=== PATIENT | female | born 1945 | race Caucasian/White ===

== ENCOUNTER 2018-06-06 12:48 | Inpatient (IN) | payer OTHER, BC ==
[2018-06-06] MEDS ORDERED: ASPIRIN 81 MG CHEWABLE TABLETS PO ONE (13:25)
[2018-06-06] MEDS ORDERED: ASPIRIN 81 MG CHEWABLE TABLETS ONE (13:49)
--- NOTE | 2018-06-06 13:52 | PDOC ---
History of Present Illness - General History Source: Patient Exam Limitations: No Limitations <Maris Lugo - Last Filed: 06/06/18 15:01> <Taylor Montgomery - Last Filed: 06/06/18 19:59> - General Chief Complaint: Irregular Heart Beat Stated Complaint: CHEST PAIN Time Seen by Provider: 06/06/18 13:25 - History of Present Illness Initial Comments: 06/06/18 14:56 The patient is a 72 year old female, with a past medical history of Mitral valve prolapse and regurgitation, ulceritive colitis, pAfib, not on AC who was sent into the emergency room today by Dr. Brannon for Afib RVR. The patient denies any chest pain, palpitations, lightheadedness, or dizziness at this time. She does note that she had a syncopal episode in [place] approximately 1 month ago where she felt very weak while praying and fainted. She visited her PCP, Dr. Thaddeus Pendleton, the following day who referred her to Dr. Brannon for eval and echo. The patient states that she has been under a lot of stress lately. She notes that she does not drink caffeine very often, but may have a cup of tea/day. Denies any complaints of pain at this time. Note: Pt was unaware of any cardiac history or history of Afib. Old records from an ED visit in 2016 notes that she was previously worked up for Afib RVR. Denies fever, chills, nausea, vomiting, diarrhea. Denies chest pain, palpitations, lightheadedness, or dizziness. Denies abdominal pain. Denies recent leg swelling. Allergies: NKA PCP: Dr. Thaddeus Pendleton Crane Engineer: Dr. Brannon 06/06/18 15:01 ([facility] [place]) Past History <Maris Lugo - Last Filed: 06/06/18 15:01> - Past Medical History Anemia: No Asthma: No Cancer: No Cardiac Disorders: Yes (PAROXYSMAL ATRIAL FIBRILLATION) CVA: No COPD: No CHF: No Dementia: No Diabetes: No GI Disorders: Yes (ULCERATIVE COLITIS) Disorders: No HTN: No Hypercholesterolemia: No Liver Disease: No Seizures: No Thyroid Disease: No - Surgical History Abdominal Surgery: No Appendectomy: No Cardiac Surgery: No Cholecystectomy: No Lung Surgery: No Neurologic Surgery: No Orthopedic Surgery: No - Suicide/Smoking/Psychosocial Hx Smoking History: Never smoked Have you smoked in the past 12 months: No Hx Alcohol Use: No Drug/Substance Use Hx: No Substance Use Type: None Hx Substance Use Treatment: No <Taylor Montgomery - Last Filed: 06/06/18 19:59> - Past Medical History Allergies/Adverse Reactions: Allergies Allergy/AdvReac Type Severity Reaction Status Date / Time No Known Allergies Allergy Verified 07/08/16 13:47 Home Medications: Ambulatory Orders NK [No Known Home Medication] 07/08/16 Cardiac Specific PMH - Complaint Specific PMHX Pacemaker: No <Taylor Montgomery - Last Filed: 06/06/18 19:59> Review of Systems - Review of Systems Able to Perform ROS?: Yes <Maris Lugo - Last Filed: 06/06/18 15:01> <Taylor Montgomery - Last Filed: 06/06/18 19:59> - Review of Systems Comments:: 06/06/18 14:56 GENERAL/CONSTITUTIONAL: No fever or chills. No weakness. no sweats. HEAD, EYES, EARS, NOSE AND THROAT: No change in vision or hearing. No ear pain or discharge. No sore throat or mouth pain. No difficulty swallowing.. No congestion. CARDIOVASCULAR: No chest pain or palpitations, syncope or edema. RESPIRATORY: No SOB, cough, wheezing, or hemoptysis. GASTROINTESTINAL No nausea/vomiting. No diarrhea or constipation. No bloody stools. GENITOURINARY: No hematuria, dysuria, frequency, urgency or other changes. MUSCULOSKELETAL: No joint or muscle swelling or pain. No neck or back pain. SKIN: No rash or changes in skin color or lesions. NEUROLOGIC: No headache, vertigo, loss of consciousness, or change in strength/ sensation. HEMATOLOGIC/LYMPHATIC: No anemia, easy bruising/bleeding, or history of blood clots. ALLERGIC/IMMUNOLOGIC: No allergies All other systems reviewed and negative, or as documented in HPI. (Maris Lugo) *Physical Exam <Maris Lugo - Last Filed: 06/06/18 15:01> <Taylor Montgomery - Last Filed: 06/06/18 19:59> - Vital Signs Last Vital Signs Temp Pulse Resp BP Pulse Ox 98.1 F 65 18 135/60 100 06/06/18 12:54 06/06/18 17:50 06/06/18 17:50 06/06/18 17:50 06/06/18 17:50 - Physical Exam Comments: 06/06/18 14:56 General: Well appearing, awake and alert, NAD. HEENT: NCAT, PERRL, EOMI, clear conjunctiva, anicteric, moist mucus membranes, clear oropharynx, no oral lesions.. Neck: neck supple, FROM. No JVD. Resp: CTAB, normal and even respirations, no respiratory distress CVS: +irregularly irregular, no carotid bruits. no murmurs, 2+ peripheral pulses throughout, no peripheral edema Abdomen: soft, NTND, no peritoneal signs. Back: nontender, normal inspection and ROM MSK: no edema, YIP x4, ROM intact. No clubbing or cyanosis. normal bulk and tone. Neuro: alert, oriented appropriately; no focal neurologic deficits Skin: warm and well perfused, cap refill <2 sec, normal color (Maris Lugo) Heart Score/ECG Review <Maris Lugo - Last Filed: 06/06/18 15:01> <Taylor Montgomery - Last Filed: 06/06/18 19:59> - ECG Impressions Comment:: 06/06/18 13:49 EKG Afib with RVR and diffuse rate related ST depressions, 162 bpm, no interval abnormalities, narrow QRS, Nonspecific T wave abnormalities with RVR. (Taylor Montgomery) ED Treatment Course - LABORATORY CBC & Chemistry Diagram: 06/06/18 13:46 06/06/18 13:46 <Maris Lugo - Last Filed: 06/06/18 15:01> - LABORATORY CBC & Chemistry Diagram: 06/06/18 13:46 06/06/18 13:46 <Taylor Montgomery - Last Filed: 06/06/18 19:59> - ADDITIONAL ORDERS Additional order review: Laboratory Results 06/06/18 06/06/18 06/06/18 14:14 13:46 13:46 PT with INR INR Sodium 142 Potassium 3.9 Chloride 106 Carbon Dioxide 29 Anion Gap 7 L BUN 22 H Creatinine 0.9 Creat Clearance w eGFR > 60 Random Glucose 75 Calcium 9.0 Magnesium 2.2 Total Bilirubin 0.8 AST 20 ALT 23 Alkaline Phosphatase 75 Troponin I < 0.02 B-Natriuretic Peptide 474.71 H Total Protein 7.8 Albumin 3.6 TSH 1.28 06/06/18 13:46 PT with INR 10.90 INR 0.96 Sodium Potassium Chloride Carbon Dioxide Anion Gap BUN Creatinine Creat Clearance w eGFR Random Glucose Calcium Magnesium Total Bilirubin AST ALT Alkaline Phosphatase Troponin I B-Natriuretic Peptide Total Protein Albumin TSH 06/06/18 13:46 RBC 4.38 MCV 95.0 MCHC 33.6 RDW 13.8 MPV 10.2 Neutrophils % 55.6 Lymphocytes % 34.5 Monocytes % 6.5 Eosinophils % 2.5 Basophils % 0.9 - RADIOLOGY Radiology Studies Ordered: Category Date Time Status CHEST PA & LAT [RAD] Stat Radiology 06/06/18 13:25 Completed Radiograph Interpretation: 06/06/18 14:57 Xray of the chest Impression: emphysematous changes in the lungs, no infiltrate or effusion, no evidence of pneumonia or congestive change, no pneumothorax. (Maris Lugo) - Medications Given in the ED: ED Medications Discontinued Medications Generic Name Dose Route Start Last Admin Trade Name Freq PRN Reason Stop Dose Admin Aspirin 162 mg 06/06/18 13:25 06/06/18 13:54 Asa - PO 06/06/18 13:26 162 mg ONCE ONE Administration Sodium Chloride 1,000 ml 06/06/18 15:01 06/06/18 15:02 Normal Saline - IV 06/06/18 15:02 1,000 ml ONCE ONE Administration Medical Decision Making <Maris Lugo - Last Filed: 06/06/18 15:01> <Taylor Montgomery - Last Filed: 06/06/18 19:59> - Medical Decision Making 06/06/18 15:00 Fraih 72 YOF with Ulcerative colitis and pAfib not on AC, MVP and mitral regurgitation presenting with Afib RVR. DDx. ACS, angina, new onset arrhythmia, Afib, electrolyte/metabolic derangements. EKG Afib with RVR and diffuse rate related ST depressions, 162 bpm, no interval abnormalities, narrow QRS, Nonspecific T wave abnormalities with RVR. ED course: given aspirin. IVF. Initial EKG and report with Afib RVR, on telemetry with episodes of pAfib. Repeat EKG with sinus rhythm. No symptoms. Labs and lytes, trop_negative, BNP indeterminate range, nonspecific. CXR with emphysematous changes, no infiltrate or edema. no need for rate control now. Dispo: admit for management of new onset Afib, not on AC, will likely need vs intervention. intermittent episodes of Afib without RVR that had since resolved. Cards cs with Dr. Brannon, admit to Dr Oviedo. 06/06/18 19:59 06/06/18 19:59 (Taylor Montgomery) *DC/Admit/Observation/Transfer <Maris Lugo - Last Filed: 06/06/18 15:01> - Discharge Dispostion Decision to Admit order: Yes <Taylor Montgomery - Last Filed: 06/06/18 19:59> Diagnosis at time of Disposition: Atrial fibrillation - Discharge Dispostion Condition at time of disposition: Guarded Decision to Admit order Date/Time: Decision to Admit Order Category Date Time Status Decision to Admit to Hospital Routine Admission 06/06/18 15:00 Active Decision to Admit to Hospital Routine Admission 06/06/18 16:02 Active - Referrals Referrals: Shiraz Pendleton MD [Primary Care Provider] - - Patient Instructions - Post Discharge Activity - Attestations Scribe Attestion: 06/06/18 14:56 Documentation prepared by LILIANA Rizo, acting as chief medical technologist for Taylor Montgomery MD. (Maris Lugo) Physician Attestion: 06/06/18 14:59 I, Taylor Montgomery MD, attest that this document has been prepared under my direction and personally reviewed by me in its entirety. I further attest, that it accurately reflects all work, treatment, procedures and medical decision -making performed by me. (Taylor Montgomery)
[2018-06-06 14:32] LABS: BASO % 0.9 % (0-2.0); EOS % 2.5 % (0-4.5); HEMATOCRIT 41.6 % (32.4-45.2); LYMPH % 34.5 % (8-40); MCH 31.9 pg (25.7-33.7); MCHC 33.6 g/dl (32.0-36.0); MEAN PLT VOLUME 10.2 fl (7.5-11.1); MONO % 6.5 % (3.8-10.2); NEUT % 55.6 % (42.8-82.8); PLATELET COUNT 270 K/MM3 (134-434); RBC 4.38 M/mm3 (3.60-5.2); RDW 13.8 % (11.6-15.6); WHITE BLOOD COUNT 8.9 K/mm3 (4.0-10.0)
[2018-06-06 14:43] LABS: INR 0.96 (0.83-1.09); PROTHROMBIN TIME (PATIENT) 10.9 SEC (9.7-13.0)
[2018-06-06] MEDS ORDERED: SODIUM CHLORIDE 0.9% 500 ML INFUS.BAG IV ONE (15:01)
--- NOTE | 2018-06-06 15:25 | EKG ---
Test Reason : Blood Pressure : / mmHG Vent. Rate : 066 BPM Atrial Rate : 066 BPM P-R Int : 128 ms QRS Dur : 082 ms QT Int : 396 ms P-R-T Axes : 046 064 036 degrees QTc Int : 415 ms NORMAL SINUS RHYTHM POSSIBLE LEFT ATRIAL ENLARGEMENT BORDERLINE ECG WHEN COMPARED WITH ECG OF 06-JUN-2018 12:58, SINUS RHYTHM HAS REPLACED ATRIAL FLUTTER VENT. RATE HAS DECREASED BY [address] NO LONGER DEPRESSED IN INFERIOR LEADS ST NO LONGER DEPRESSED IN ANTEROLATERAL LEADS T WAVE INVERSION NO LONGER EVIDENT IN INFERIOR LEADS NONSPECIFIC T WAVE ABNORMALITY NO LONGER EVIDENT IN LATERAL LEADS Confirmed by CORAL QUESADA, ELVA ([id number]) on 06/06/2018 3:25:22 PM Referred By: Confirmed By:ELVA MONCADA MD
[2018-06-06 16:23] LABS: ALBUMIN 3.6 g/dl (3.4-5.0); ANION GAP 7 MMOL/L (8-16); BLOOD UREA NITROGEN 22 mg/dL (7-18); CHLORIDE 106 mmol/L (98-107); CO2 29 mmol/L (21-32); GLUCOSE,RANDOM 75 mg/dL (74-106); MAGNESIUM 2.2 mg/dL (1.8-2.4); POTASSIUM 3.9 mmol/L (3.5-5.1); SODIUM 142 mmol/L (136-145)
[2018-06-06 16:26] LABS: ALK PHOS 75 U/L (45-117); BILIRUBIN,TOTAL 0.8 mg/dL (0.2-1); CREATININE 0.9 mg/dL (0.55-1.3); SGOT/AST 20 U/L (15-37); SGPT/ALT 23 U/L (13-61); TOT PROT 7.8 g/dl (6.4-8.2)
[2018-06-06 16:31] LABS: N-TERMINAL BNP 474.71 pg/ml (5-125)
--- NOTE | 2018-06-06 17:05 | HP ---
Admitting History and Physical - Primary Care Physician PCP: Shiraz Pendleton - Admission Chief Complaint: afib w/ rvr History of Present Illness: is a 72 year old female who was sent over from [employer]'s office for afib w/ rvr. Pt reports she was at the office getting an echo done, pt noted to have HR in 150s, ekg revealed afib w/ rvr at the office and was told to come to ED. She reports having a syncope episode in [place] 1 month ago, she reports feeling "weak in stomach" and feels she fainted due to heat, pt did not go to the hospital at that time, was told by EMS her HR was irregular, she saw her PCP in office next day, ekg did not reveal significant changes and an echo was ordered by PCP. She reports she has been more stressed over the last 6 months. She reports intermittent generalized weakness which self resolves, occurring once a month for the last few years. Per cardiology records, pt had isolated episode of afib in 2008, currently not on AC/BB.Otherwise, pt reports feeling well without any symptoms of sob, lightheadedness, dizziness, n/v/d, or weakness. Denies excessive caffeine intake. Pt converted back to SR in ED. History Source: Patient, Medical Record Limitations to Obtaining History: No Limitations - Past Medical History Gastrointestinal: Yes: Ulcerative Colitis - Smoking History Smoking history: Never smoked Have you smoked in the past 12 months: No - Alcohol/Substance Use Hx Alcohol Use: No History of Substance Use: reports: None - Social History History of Recent Travel: No Home Medications - Allergies Allergies/Adverse Reactions: Allergies Allergy/AdvReac Type Severity Reaction Status Date / Time No Known Allergies Allergy Verified 07/08/16 13:47 - Home Medications Home Medications: Ambulatory Orders NK [No Known Home Medication] 07/08/16 Family Disease History - Family Disease History Family Disease History: Heart Disease: Brother, Other: Grandparent (UC ), Father (ulcerative colitis ) Review of Systems Findings/Remarks: PER HPI Physical Examination Vital Signs: Vital Signs Temperature 98.1 F 06/06/18 12:54 Pulse Rate 78 06/06/18 12:54 Respiratory Rate 18 06/06/18 12:54 Blood Pressure 137/74 06/06/18 12:54 O2 Sat by Pulse Oximetry (%) 97 06/06/18 12:54 Constitutional: Yes: Well Nourished, No Distress, Calm Cardiovascular: Yes: WNL, Regular Rate and Rhythm. No: Murmur, Rub Respiratory: Yes: WNL, Regular, CTA Bilaterally. No: Accessory Muscle Use, SOB , SOB on Exertion, Tachypnea, Wheezes Gastrointestinal: Yes: WNL, Normal Bowel Sounds, Soft. No: Distention, Tenderness Renal/: Yes: WNL Musculoskeletal: Yes: WNL Extremities: Yes: WNL Edema: No Integumentary: Yes: WNL Neurological: Yes: WNL, Alert, Oriented. No: Confusion, Facial Droop, Tingling , Unsteady Gait Psychiatric: Yes: WNL, Alert, Oriented Labs: CBC, BMP 06/06/18 13:46 06/06/18 13:46 Imaging - Results Chest X-ray: Report Reviewed EKG: Report Reviewed Problem List - Problems (1) Atrial fibrillation with RVR Assessment/Plan: afib w/ rvr 150s in office, asymptomatic converted back to SR in ED without arrhythmic tsh wnl chadvasc score 2- candidate for AC AC/BB recommended to pt by Cardiology however pt prefers to speak to PCP before starting new medication, PCP aware tele monitoring cardiology following Code(s): I48.91 - UNSPECIFIED ATRIAL FIBRILLATION (2) Syncope Assessment/Plan: Recent syncopal episode over a month ago suspect 2/2 dehydration/heat exhaustion echo done today without etiology cardiology following monitor Code(s): R55 - SYNCOPE AND COLLAPSE Qualifiers: Syncope type: heat syncope Encounter type: subsequent encounter Qualified Code(s): T67.1XXD - Heat syncope, subsequent encounter Assessment/Plan Dispo: possible d/c tomorrow once cleared by cardiology
--- NOTE | 2018-06-06 17:32 | CON.CARD ---
Cardiology Consult (text) - Consultation Consultation Note: cc: afib hpi: 72 f hx UC, pafib here with afib with rvr. In 2008 pt had isolated episode of afib. Has not been on AC and BB was stopped years ago. Today she was going for outpt echo after recent vasovagal episode. During echo found to be in afib with rvr. ECG done and confirmed afib 160s. She had no sxs. No cp, sob, palps dizzy loc pnd orthopnea le edema. Sent to ER. In ER converted on own to SR. pmh: per hpi psh: cataracts social: no tob fam: nc ros: per hpi; no nvd vision changes, muscle pain, gib hematuria dysuria cough meds: Home Medications Medication Instructions Recorded NK [No Known Home Medication] 07/08/16 pe: Vital Signs Period Temp Pulse Resp BP Sys/Cole Pulse Ox Last 24 Hr 98.1 F 78 18 137/74 97 nad no jvd rrr s1s2 no mrg cta bl nl eff aaox3 no le e/c/c abd nt nd pos bs no jaundice diaphoresis pos dp pt no carotid bruits Laboratory Last Values WBC 8.9 K/mm3 (4.0-10.0) 06/06/18 13:46 RBC 4.38 M/mm3 (3.60-5.2) 06/06/18 13:46 Hgb 14.0 GM/dL (10.7-15.3) 06/06/18 13:46 Hct 41.6 % (32.4-45.2) 06/06/18 13:46 MCV 95.0 fl (80-96) 06/06/18 13:46 MCH 31.9 pg (25.7-33.7) 06/06/18 13:46 MCHC 33.6 g/dl (32.0-36.0) 06/06/18 13:46 RDW 13.8 % (11.6-15.6) 06/06/18 13:46 Plt Count 270 K/MM3 (134-434) 06/06/18 13:46 MPV 10.2 fl (7.5-11.1) 06/06/18 13:46 Absolute Neuts (auto) 4.9 K/mm3 (1.5-8.0) 06/06/18 13:46 Neutrophils % 55.6 % (42.8-82.8) 06/06/18 13:46 Lymphocytes % 34.5 % (8-40) 06/06/18 13:46 Monocytes % 6.5 % (3.8-10.2) 06/06/18 13:46 Eosinophils % 2.5 % (0-4.5) 06/06/18 13:46 Basophils % 0.9 % (0-2.0) 06/06/18 13:46 Nucleated RBC % 0 % (0-0) 06/06/18 13:46 PT with INR 10.90 SEC (9.7-13.0) 06/06/18 13:46 INR 0.96 (0.83-1.09) 06/06/18 13:46 Sodium 142 mmol/L (136-145) 06/06/18 13:46 Potassium 3.9 mmol/L (3.5-5.1) 06/06/18 13:46 Chloride 106 mmol/L (98-107) 06/06/18 13:46 Carbon Dioxide 29 mmol/L (21-32) 06/06/18 13:46 Anion Gap 7 MMOL/L (8-16) L 06/06/18 13:46 BUN 22 mg/dL (7-18) H 06/06/18 13:46 Creatinine 0.9 mg/dL (0.55-1.3) 06/06/18 13:46 Creat Clearance w eGFR > 60 (>60) 06/06/18 13:46 Random Glucose 75 mg/dL (74-106) 06/06/18 13:46 Calcium 9.0 mg/dL (8.5-10.1) 06/06/18 13:46 Magnesium 2.2 mg/dL (1.8-2.4) 06/06/18 13:46 Total Bilirubin 0.8 mg/dL (0.2-1) 06/06/18 13:46 AST 20 U/L (15-37) 06/06/18 13:46 ALT 23 U/L (13-61) 06/06/18 13:46 Alkaline Phosphatase 75 U/L (45-117) 06/06/18 13:46 Troponin I < 0.02 ng/ml (0.00-0.05) 06/06/18 13:46 B-Natriuretic Peptide 474.71 pg/ml (5-125) H 06/06/18 13:46 Total Protein 7.8 g/dl (6.4-8.2) 06/06/18 13:46 Albumin 3.6 g/dl (3.4-5.0) 06/06/18 13:46 TSH 1.28 uIU/ml (0.358-3.74) 06/06/18 14:14 office echo 05/2018, my prelim read: afib 150s, nl lv/rv, mod tr, nl rvsp, mild mr, IASA ecg 1: afib with rvr, ecg 2: sr, nl intervals, no ischemic changes cxr: clear lungs a/p: 72 f hx UC, pafib here with afib with rvr. pafib: -In 2008 pt had isolated episode of afib. Has not been on AC and BB was stopped years ago. -today found in afib with rvr during outpt echo, asymptomatic -in ER converted on own to SR -rec'd low dose bb, toprol 25 bid and eliquis 5 bid (chadsvasc is 2) but pt says she will not start until talking to her PMD first -echo today in office unremarkable, tsh wnl -monitor on tele, likely dc tomorrow presyncope: -vasovagal episode recently in [facility] -echo today w/o etiology -?afib with rvr at that time, although she had no sxs with rvr today so seems less likely -plan as above possible juliann - describes pt having episodes of apnea during sleep. rec'd outpt sleep study.
[2018-06-07 01:26] VITALS: BMI 22.6
[2018-06-07 07:20] LABS: BASO % 0.7 % (0-2.0); EOS % 3.3 % (0-4.5); HEMATOCRIT 39.1 % (32.4-45.2); HEMOGLOBIN 13.1 GM/dL (10.7-15.3); LYMPH % 33.3 % (8-40); MCH 31.9 pg (25.7-33.7); MCHC 33.4 g/dl (32.0-36.0); MEAN CELL VOLUME 95.5 fl (80-96); MEAN PLT VOLUME 9.5 fl (7.5-11.1); MONO % 5.8 % (3.8-10.2); NEUT % 56.9 % (42.8-82.8); PLATELET COUNT 229 K/MM3 (134-434); RBC 4.09 M/mm3 (3.60-5.2); RDW 13.6 % (11.6-15.6); WHITE BLOOD COUNT 8.6 K/mm3 (4.0-10.0)
[2018-06-07 07:37] LABS: INR 0.99 (0.83-1.09); PROTHROMBIN TIME (PATIENT) 11.2 SEC (9.7-13.0)
[2018-06-07 07:46] LABS: CHLORIDE 109 mmol/L (98-107); POTASSIUM 3.9 mmol/L (3.5-5.1); SODIUM 141 mmol/L (136-145)
[2018-06-07 07:58] LABS: ANION GAP 6 MMOL/L (8-16); BLOOD UREA NITROGEN 22 mg/dL (7-18); CALCIUM 8.3 mg/dL (8.5-10.1); CO2 26 mmol/L (21-32); CREATININE 0.8 mg/dL (0.55-1.3); GLUCOSE,RANDOM 82 mg/dL (74-106); MAGNESIUM 2.2 mg/dL (1.8-2.4)
--- NOTE | 2018-06-07 11:14 | PN ---
Progress Note (short form) - Note Progress Note: s: no cp, sob, palps, dizzy o: Vital Signs Period Temp Pulse Resp BP Sys/Cole Pulse Ox Last 24 Hr 97.4 F-98.2 F 60-78 17-18 119-137/60-84 97-100 nad no jvd rrr s1s2 no mrg cta bl nl eff aaox3 no le e/c/c abd nt nd pos bs no jaundice diaphoresis CBC, BMP 06/07/18 06:10 06/07/18 06:10 office echo 05/2018, my prelim read: afib 150s, nl lv/rv, mod tr, nl rvsp, mild mr, IASA ecg 1: afib with rvr, ecg 2: sr, nl intervals, no ischemic changes cxr: clear lungs tele: sr a/p: 72 f hx UC, pafib here with afib with rvr. pafib: -In 2008 pt had isolated episode of afib. Has not been on AC and BB was stopped years ago. -yesterday found in afib with rvr during outpt echo, asymptomatic -in ER converted on own to SR, remains in sr overnight -rec'd low dose bb, toprol 25 bid and eliquis 5 bid (chadsvasc is 2), pt now agreeable -echo today in office unremarkable, tsh wnl presyncope: -vasovagal episode recently in [facility] -echo today w/o etiology -?afib with rvr at that time, although she had no sxs with rvr today so seems less likely -plan as above possible juliann - describes pt having episodes of apnea during sleep. rec'd outpt sleep study. cardiac castillo stable for dc, f/u 1 mos
[2018-06-07] MEDS ORDERED: APIXABAN 5 MG TABLET PO SCH (11:30)
[2018-06-07] MEDS ORDERED: metoPROLOL SUCCINATE 25 MG TAB.SR.24H (FP) PO SCH (11:30)
[2018-06-07 12:00] VITALS: BP 130/77; PULSE 64; TEMP 98
--- NOTE | 2018-06-07 13:22 | DS ---
Physical Examination Vital Signs: Vital Signs Temperature 98.0 F 06/07/18 10:00 Pulse Rate 64 06/07/18 10:00 Respiratory Rate 18 06/07/18 10:00 Blood Pressure 130/77 06/07/18 10:00 O2 Sat by Pulse Oximetry (%) 98 06/07/18 10:00 Constitutional: Yes: Well Nourished, No Distress, Calm Cardiovascular: Yes: Regular Rate and Rhythm. No: Murmur Respiratory: Yes: Regular, CTA Bilaterally Gastrointestinal: Yes: WNL, Normal Bowel Sounds, Soft. No: Distention, Tenderness Renal/: Yes: WNL Musculoskeletal: Yes: WNL Edema: No Labs: CBC, BMP 06/07/18 06:10 06/07/18 06:10 Discharge Summary Reason For Visit: ATRIAL FIBRILATION Hospital Course: 72 year old female admitted for afib w/ rvr, self resolved without medication. Pt evaluated by cardiology. chadvasc score 2. started on metoprolol, eliquis for paroxysmal afib. pt without any symptoms. hx of syncope 1 month ago, head CT negative. Otherwise, no acute events. Pt asymptomatic, currently in SR. outpt follow up recommended. Condition: Good - Instructions Referrals: Marco Antonio Brannon MD [Staff Physician] - 1 Week Shiraz Pendleton MD [Primary Care Provider] - 1 Week Disposition: HOME - Home Medications Comprehensive Discharge Medication List: Ambulatory Orders Apixaban [Eliquis -] 5 mg PO BID #60 tablet 06/07/18 Metoprolol Succinate [Toprol XL -] 25 mg PO BID #60 tab.sr.24h 06/07/18
--- NOTE | 2018-06-09 15:40 | EKG ---
Test Reason : Blood Pressure : / mmHG Vent. Rate : 162 BPM Atrial Rate : 326 BPM P-R Int : 000 ms QRS Dur : 078 ms QT Int : 294 ms P-R-T Axes : 000 064 -82 degrees QTc Int : 482 ms ATRIAL FLUTTER WITH VARIABLE A-V BLOCK MARKED ST ABNORMALITY, POSSIBLE INFERIOR SUBENDOCARDIAL INJURY ABNORMAL ECG WHEN COMPARED WITH ECG OF 06-DEC-2008 10:08, ATRIAL FLUTTER HAS REPLACED SINUS RHYTHM VENT. RATE HAS INCREASED BY [address] NOW DEPRESSED IN INFERIOR LEADS ST NOW DEPRESSED IN ANTEROLATERAL LEADS T WAVE INVERSION NOW EVIDENT IN INFERIOR LEADS NONSPECIFIC T WAVE ABNORMALITY NOW EVIDENT IN LATERAL LEADS Confirmed by MD Frankie, Scott ([id number]) on 06/09/2018 3:39:44 PM Referred By: Confirmed By:Scott David MD
== END 2018-06-07 13:18 | disposition home or self-care (01) | DRG 310 ==
LOC: JER 12:48 → JERBED 16:56 → OBSVTOIN 16:56 → UNDOADMOB 21:16 → JERBED 21:16 → J4W 06-07 01:17
PROVIDERS: ADMIT Internal Medicine; ATTEND Internal Medicine
DX: I48.0 Paroxysmal atrial fibrillation (principal); I34.1 Nonrheumatic mitral (valve) prolapse; I34.0 Nonrheumatic mitral (valve) insufficiency; R55 Syncope and collapse
CPT/HCPCS: 36415; 70450-TC; 71046-TC-FY; 80048; 80053; 83735; 83880; 84443; 84484; 85025; 85610; 93005; 93010; 99284-25

== ENCOUNTER 2018-07-11 15:13 | Emergency (ER) | payer OTHER, BC ==
--- NOTE | 2018-07-11 15:21 | PDOC ---
Rapid Medical Evaluation Time Seen by Provider: 07/11/18 15:17 Medical Evaluation: Allergies Allergy/AdvReac Type Severity Reaction Status Date / Time No Known Allergies Allergy Verified 07/08/16 13:47 07/11/18 15:17 I have performed a brief in-person evaluation of this patient. The patient presents with a chief complaint of: atraumatic right calf pain Pertinent physical exam findings: swelling and tenderness to right calf. No erythema noted. I have ordered the following: doppler The patient will proceed to the ED for further evaluation. Discharge Disposition - Diagnosis Right calf pain - Referrals - Patient Instructions - Post Discharge Activity
[2018-07-11 15:24] VITALS: BP 162/73; PULSE 63; TEMP 98.6; BMI 21.7
--- NOTE | 2018-07-11 17:50 | PDOC ---
History of Present Illness - General Chief Complaint: Edema Stated Complaint: RT LEG PAIN Time Seen by Provider: 07/11/18 15:17 History Source: Patient Exam Limitations: No Limitations - History of Present Illness Initial Comments: 07/11/18 17:48 Patient is a 72-year-old female with past medical history of hypertension, atrial fibrillation on eliquis, who presents to the emergency department today for right lower extremity swelling and pain. Patient states that she feels the lower extremity pain while walking and sitting. She states that it does not hurt to touch the leg. She also notices that the right leg is double the size of left leg especially around the knees. Denies recent travel, prolonged sedentary lifestyle, smoking. Denies shortness of breath, difficulty breathing, fevers, recent illness, chest pain, palpitations, numbness and tingling to the extremities, weakness to the extremities. Past History - Travel Traveled outside of the country in the last 30 days: No Close contact w/someone who was outside of country & ill: No - Past Medical History Allergies/Adverse Reactions: Allergies Allergy/AdvReac Type Severity Reaction Status Date / Time No Known Allergies Allergy Verified 07/08/16 13:47 Home Medications: Ambulatory Orders Apixaban [Eliquis -] 5 mg PO BID #60 tablet 06/07/18 Metoprolol Succinate [Toprol XL -] 25 mg PO BID #60 tab.sr.24h 06/07/18 Anemia: No Asthma: No Cancer: No Cardiac Disorders: Yes (PAROXYSMAL ATRIAL FIBRILLATION) CVA: No COPD: No CHF: No Dementia: No Diabetes: No GI Disorders: Yes (ULCERATIVE COLITIS) Disorders: No HTN: No Hypercholesterolemia: No Liver Disease: No Seizures: No Thyroid Disease: No - Surgical History Abdominal Surgery: No Appendectomy: No Cardiac Surgery: No Cholecystectomy: No Lung Surgery: No Neurologic Surgery: No Orthopedic Surgery: No - Suicide/Smoking/Psychosocial Hx Smoking History: Never smoked Have you smoked in the past 12 months: No Information on smoking cessation initiated: No Hx Alcohol Use: No Drug/Substance Use Hx: No Substance Use Type: None Hx Substance Use Treatment: No Review of Systems - Review of Systems Able to Perform ROS?: Yes Comments:: 07/11/18 17:43 CONSTITUTIONAL: Absent: fever, chills, diaphoresis, generalized weakness, malaise, loss of appetite HEENT: Absent: rhinorrhea, nasal congestion, throat pain, throat swelling, difficulty swallowing, mouth swelling, ear pain, eye pain, visual Changes CARDIOVASCULAR: Present: peripheral edema/R calf pain Absent: chest pain, loss of consciousness , palpitations, irregular heart rate RESPIRATORY: Absent: cough, shortness of breath, dyspnea with exertion, orthopnea, wheezing, stridor, hemoptysis GASTROINTESTINAL: Absent: abdominal pain, abdominal distension, nausea, vomiting, diarrhea, constipation, melena, hematochezia GENITOURINARY: Absent: dysuria, frequency, urgency, hesitancy, hematuria, flank pain, genital pain MUSCULOSKELETAL: Absent: myalgia, arthralgia, joint swelling SKIN: Absent: rash, itching, pallor HEMATOLOGIC/IMMUNOLOGIC: Absent: easy bleeding, easy bruising, lymphadenopathy, frequent infections ENDOCRINE: Absent: unexplained weight gain, unexplained weight loss, heat intolerance, cold intolerance NEUROLOGIC: Absent: headache, focal weakness or paresthesias, dizziness, unsteady gait, seizure, mental status changes, bladder or bowel incontinence PSYCHIATRIC: Absent: anxiety, depression, suicidal or homicidal ideation, hallucinations. Is the patient limited [place]yan proficient: No *Physical Exam - Vital Signs Last Vital Signs Temp Pulse Resp BP Pulse Ox 98.6 F 63 16 162/73 98 07/11/18 15:21 07/11/18 15:21 07/11/18 15:21 07/11/18 15:21 07/11/18 15:21 - Physical Exam Comments: 07/11/18 17:44 GENERAL: Well developed, well nourished. Awake and alert. No acute distress. HEENT: Normocephalic, atraumatic. PERRLA, EOMI. No conjunctival pallor. Sclera are non- icteric. Moist mucous membranes. Oropharynx is clear. NECK: Supple. Full ROM. No JVD. Carotid pulses 2+ and symmetric, without bruits. No thyromegaly. No lymphadenopathy. CARDIOVASCULAR: Regular rate and rhythm. No murmurs, rubs, or gallops. Distal pulses are 2+ and symmetric. PULMONARY: No evidence of respiratory distress. Lungs clear to auscultation bilaterally. No wheezing, rales or rhonchi. ABDOMINAL: Soft. Non-tender. Non-distended. No rebound or guarding. No organomegaly. Normoactive bowel sounds. MUSCULOSKELETAL Normal range of motion at all joints. No bony deformities or tenderness. No CVA tenderness. EXTREMITIES: R calf and knee doubled in size compared to L calf. Pain with flexion of the R knee. Pt able to perform a straight leg raise of the R leg. No ttp of the L calf. (-) sofy's sign. No cyanosis. No clubbing. SKIN: Warm and dry. Normal capillary refill. No rashes. No jaundice. NEUROLOGICAL: Alert, awake, appropriate. Cranial nerves 2-12 intact. No deficits to light touch and temperature in face, upper extremities and lower extremities. No motor deficits in the in face, upper extremities and lower extremities. Normoreflexic in the upper and lower extremities. Normal speech. Toes are down- going bilaterally. Gait is normal without ataxia. PSYCHIATRIC: Cooperative. Good eye contact. Appropriate mood and affect. ED Treatment Course - LABORATORY CBC & Chemistry Diagram: 07/11/18 18:45 07/11/18 18:45 Medical Decision Making - Medical Decision Making 07/11/18 17:50 Patient is a 72-year-old female with past medical history of hypertension, atrial fibrillation on eliquis, who presents to the emergency department today for right lower extremity swelling and pain. -R leg grossly swollen around the area of the R knee. (-) Sofy's sign. Lungs CTAB -Pt currently on anticoagulation for atrial fibrillation -Labs added onto US order from [facility] -Pt refusing pain medication at this time -Re-evaluate 07/11/18 19:00 -Pt pending labs and US -Sign out given to Vy Poole [employer] EXAMINER for completion of work up. *DC/Admit/Observation/Transfer Diagnosis at time of Disposition: Right calf pain Right knee pain Qualifiers: Chronicity: acute Qualified Code(s): M25.561 - Pain in right knee Joint effusion of knee Qualifiers: Laterality: right Qualified Code(s): M25.461 - Effusion, right knee - Discharge Dispostion Disposition: HOME - Referrals Referrals: Micheal Almaraz MD [Staff Physician] - Shiraz Pendleton MD [Primary Care Provider] - - Patient Instructions Printed Discharge Instructions: DI for Knee Effusion Additional Instructions: use knee immobilizer as tolerated for comfort. follow up with an orthopedic doctor as soon as possible. take tylenol every 4-6 hours as needed for pain Additional Instructions: * Please call your personal physician to report your Emergency Department visit and to report your progress, if any. * If there is no improvement in symptoms in 2 days call your physician. * Return to the Emergency Department for any worsening symptoms. - Post Discharge Activity
[2018-07-11 18:55] LABS: BASO % 0.6 % (0-2.0); EOS % 2.5 % (0-4.5); HEMATOCRIT 40.5 % (32.4-45.2); HEMOGLOBIN 13.4 GM/dL (10.7-15.3); LYMPH % 35.5 % (8-40); MCH 31.4 pg (25.7-33.7); MEAN CELL VOLUME 95.1 fl (80-96); MEAN PLT VOLUME 10.1 fl (7.5-11.1); MONO % 6.5 % (3.8-10.2); NEUT % 54.9 % (42.8-82.8); PLATELET COUNT 274 K/MM3 (134-434); RBC 4.26 M/mm3 (3.60-5.2); RDW 13.9 % (11.6-15.6); WHITE BLOOD COUNT 13.1 K/mm3 (4.0-10.0)
[2018-07-11 18:59] LABS: URINE APPEARANCE SLCLOUDY; URINE BILIRUBIN NEGATIVE (<2.0 mg/dL); URINE COLOR YELLOW; URINE GLUCOSE (UA) NEGATIVE (NEGATIVE); URINE KETONE NEGATIVE (NEGATIVE); URINE LEUK ESTERASE 2+ (NEGATIVE); URINE NITRITE NEGATIVE (NEGATIVE); URINE PROTEIN 2+ (NEGATIVE); URINE UROBILINOGEN NEGATIVE mg/dL (0.2-1.0)
[2018-07-11 19:03] LABS: EPI CELLS RARE /HPF (FEW); URINE MUCUS RARE
[2018-07-11 19:08] LABS: INR 1.05 (0.83-1.09); PROTHROMBIN TIME (PATIENT) 12.4 SEC (9.7-13.0)
[2018-07-11 20:06] LABS: ALBUMIN 3.4 g/dl (3.4-5.0); ALK PHOS 85 U/L (45-117); ANION GAP 6 MMOL/L (8-16); BILIRUBIN,TOTAL 0.4 mg/dL (0.2-1); BLOOD UREA NITROGEN 33 mg/dL (7-18); CALCIUM 9.1 mg/dL (8.5-10.1); CHLORIDE 106 mmol/L (98-107); CO2 28 mmol/L (21-32); CREATININE 0.8 mg/dL (0.55-1.3); GLUCOSE,RANDOM 76 mg/dL (74-106); POTASSIUM 3.9 mmol/L (3.5-5.1); SGOT/AST 16 U/L (15-37); SGPT/ALT 21 U/L (13-61); SODIUM 141 mmol/L (136-145); TOT PROT 7.3 g/dl (6.4-8.2)
--- NOTE | 2018-07-11 20:06 | PDOC ---
*Physical Exam - Vital Signs Last Vital Signs Temp Pulse Resp BP Pulse Ox 98.6 F 63 16 162/73 98 07/11/18 15:21 07/11/18 15:21 07/11/18 15:21 07/11/18 15:21 07/11/18 15:21 - Physical Exam General Appearance: Yes: Appropriately Dressed Musculoskeletal: positive: Normal Inspection, Other (right knee swelling. no redness, no increase in pain with passive ROM ) ED Treatment Course - LABORATORY CBC & Chemistry Diagram: 07/11/18 18:45 07/11/18 18:45 - ADDITIONAL ORDERS Additional order review: Laboratory Results 07/11/18 07/11/18 18:45 18:45 PT with INR 12.40 INR 1.05 Urine Color Yellow Urine Appearance Slcloudy Urine pH 5.0 Ur Specific [place] 1.013 Urine Protein 2+ H Urine Glucose (UA) Negative Urine Ketones Negative Urine Blood Negative Urine Nitrite Negative Urine Bilirubin Negative Urine Urobilinogen Negative Ur Leukocyte Esterase 2+ H Urine WBC (Auto) 9 Urine RBC (Auto) 4 Ur Epithelial Cells Rare Urine Mucus Rare 07/11/18 18:45 RBC 4.26 MCV 95.1 MCHC 33.0 RDW 13.9 MPV 10.1 Neutrophils % 54.9 Lymphocytes % 35.5 Monocytes % 6.5 Eosinophils % 2.5 Basophils % 0.6 Medical Decision Making - Medical Decision Making 07/11/18 20:18 US negative for DVT. right knee sudden onset of pain and swelling. patient reports that she has not taken anything for pain because she wants to find out whats wrong first. patient denies fever/ chills. exam benign low suspicion for septic joint. will d/c with pain control 07/11/18 21:09 CT: mild joint effusion. degenerative joints. *DC/Admit/Observation/Transfer Diagnosis at time of Disposition: Right calf pain Right knee pain Qualifiers: Chronicity: acute Qualified Code(s): M25.561 - Pain in right knee Joint effusion of knee Qualifiers: Laterality: right Qualified Code(s): M25.461 - Effusion, right knee - Referrals Referrals: Shiraz Pendleton MD [Primary Care Provider] - Micheal Almaraz MD [Staff Physician] - - Patient Instructions Printed Discharge Instructions: DI for Knee Effusion Additional Instructions: use knee immobilizer as tolerated for comfort. follow up with an orthopedic doctor as soon as possible. take tylenol every 4-6 hours as needed for pain Additional Instructions: * Please call your personal physician to report your Emergency Department visit and to report your progress, if any. * If there is no improvement in symptoms in 2 days call your physician. * Return to the Emergency Department for any worsening symptoms. - Post Discharge Activity
[2018-07-11] MEDS ORDERED: ACETAMINOPHEN 325 MG TABLET (FP) PO ONE (22:40)
[2018-07-11] MEDS ORDERED: ACETAMINOPHEN 325 MG TABLET (FP) ONE (22:47)
== END 2018-07-11 22:48 | disposition home or self-care (01) ==
LOC: JER 15:13
DX: M79.661 Pain in right lower leg (principal); I10 Essential (primary) hypertension; I48.91 Unspecified atrial fibrillation; Z79.01 Long term (current) use of anticoagulants
CPT/HCPCS: 36415; 73700-TC-RT; 80053; 81003; 81015; 85025; 85610; 93971-TC; 99281-25

== ENCOUNTER 2018-08-17 09:23 | Day surgery (SDC) | payer OTHER, BC ==
[2018-08-16 12:34] VITALS: BMI 24.2
[2018-08-17 11:15] VITALS: TEMP 97.6
[2018-08-17 12:09] VITALS: BP 125/68; PULSE 60
--- NOTE | 2018-08-20 18:11 | PATH ---
Surgical Pathology Report Patient Name: ANNY OKEEFE [facility]. Rec. #: [id number] /Age/Gender: 1945 (Age: 72) / F Account: [id number] Location: ASU-ENDOSCOPY Taken: 08/17/2018 Received: 08/17/2018 Reported: 08/20/2018 Physicians: Clayton Meza M.D. Specimen(s) Received A: BX CECUM B: BX ILEUM C: BX OF RIGHT COLON D: BX TRANSVERSE COLON E: BX DESCENDING COLON F: BX SIGMOID G: BX RECTUM Clinical History Ulcerative colitis surveillance Postoperative diagnosis: Quiescent ulcerative colitis, melanosis coli Final Diagnosis A. CECUM, BIOPSY: COLONIC MUCOSA WITH MELANOSIS COLI. NO ACTIVE INFLAMMATION IDENTIFIED. B. ILEUM, BIOPSY: ILEAL MUCOSA WITHOUT SIGNIFICANT PATHOLOGIC FINDINGS. NO ACTIVE INFLAMMATION IDENTIFIED. C. COLON, RIGHT, BIOPSY: COLONIC MUCOSA WITH PROMINENT LYMPHOID AGGREGATE. NO ACTIVE INFLAMMATION IDENTIFIED. D. TRANSVERSE COLON, BIOPSY: COLONIC MUCOSA WITH MODERATE CHRONIC ACTIVE COLITIS INCLUDING ACUTE CRYPTITIS. NO GRANULOMA OR DYSPLASIA IDENTIFIED. E. DESCENDING COLON, BIOPSY: COLONIC MUCOSA WITH MILD ARCHITECTURAL DISTORTION. NO ACTIVE INFLAMMATION IDENTIFIED. F. SIGMOID COLON, BIOPSY: COLONIC MUCOSA WITH MELANOSIS COLI. NO ACTIVE INFLAMMATION IDENTIFIED. G. RECTUM, BIOPSY: HYPERPLASTIC POLYP. Comment: Findings are consistent with known history of ulcerative colitis with focal activity. Electronically Signed Solange Rubi M.D. Gross Description A. Received in formalin, labeled "biopsy cecum" are 4 azar, irregular portions of soft tissue ranging from 0.1-0.4 cm. in greatest dimension. The specimens are submitted in toto in one cassette. B. Received in formalin, labeled "biopsy ileum" are 2 azar, irregular portions of soft tissue measuring 0.3 and 0.4 cm. in greatest dimension. The specimens are submitted in toto in one cassette. C. Received in formalin, labeled "biopsy right colon" are 2 azar, irregular portions of soft tissue measuring 0.2 and 0.4 cm. in greatest dimension. The specimens are submitted in toto in one cassette. D. Received in formalin, labeled "biopsy transverse colon" are 2 azar, irregular portions of soft tissue averaging 0.4 cm. in greatest dimension. The specimens are submitted in toto in one cassette. E. Received in formalin, labeled "biopsy descending colon" are 2 azar, irregular portions of soft tissue measuring 0.4 and 0.5 cm. in greatest dimension. The specimens are submitted in toto in one cassette. F. Received in formalin, labeled "biopsy sigmoid" are 2 azar, irregular portions of soft tissue measuring 0.3 and 0.4 cm. in greatest dimension. The specimens are submitted in toto in one cassette. G. Received in formalin, labeled "biopsy rectum" are 2 azar, irregular portions of soft tissue measuring 0.3 and 0.4 cm. in greatest dimension. The specimens are submitted in toto in one cassette. 08/17/2018 saudi08/17/2018
== END 2018-08-17 12:12 | disposition home or self-care (01) ==
LOC: JASU-ENDO 09:23
PROVIDERS: ATTEND Internal Medicine Gastroenterology
PROC: 0DBE8ZX Excision of Large Intestine, Via Natural or Artificial Opening Endoscopic, Diagnostic (ICD-10-PCS; principal; 2018-08-17 09:45)
DX: Z12.11 Encounter for screening for malignant neoplasm of colon (principal); K63.89 Other specified diseases of intestine; K64.8 Other hemorrhoids
CPT/HCPCS: 88305-TC

== ENCOUNTER 2020-09-18 07:24 | Inpatient (IN) | payer OTHER, BC ==
[2020-09-18] MEDS ORDERED: FAMOTIDINE 20 MG/50 ML IVPB 20 MG/50 ML MG IVPB ONE ×2 (08:02→08:13)
[2020-09-18] MEDS ORDERED: ONDANSETRON 4 MG/2 ML VIAL IVPUSH ONE (08:02)
[2020-09-18] MEDS ORDERED: ACETAMINOPHEN 1000 MG/100 ML VIAL (NON FORMULARY) IVPB ONE (08:02)
[2020-09-18] MEDS ORDERED: SODIUM CHLORIDE 500 ML IV STA (08:03)
[2020-09-18] MEDS ORDERED: ACETAMINOPHEN INJECTION 100 ML IVPB ONE (08:12)
[2020-09-18] MEDS ORDERED: ONDANSETRON 4 MG/2 ML VIAL ONE (08:12)
[2020-09-18 08:58] LABS: BASO % 0.4 % (0-2.0); EOS % 0.2 % (0-4.5); HEMATOCRIT 39.9 % (32.4-45.2); HEMOGLOBIN 13.5 GM/dL (10.7-15.3); LYMPH % 17.8 % (8-40); MCH 32.4 pg (25.7-33.7); MCHC 33.9 g/dl (32.0-36.0); MEAN CELL VOLUME 95.5 fl (80-96); MEAN PLT VOLUME 10.7 fl (7.5-11.1); MONO % 4.2 % (3.8-10.2); NEUT % 77.4 % (42.8-82.8); PLATELET COUNT 235 K/MM3 (134-434); RBC 4.18 M/mm3 (3.60-5.2); WHITE BLOOD COUNT 12.5 K/mm3 (4.0-10.0)
[2020-09-18 09:03] LABS: INR 0.99 (0.83-1.09)
[2020-09-18 09:14] LABS: CHLORIDE 99 mmol/L (98-107); POTASSIUM 4.4 mmol/L (3.5-5.1); SODIUM 136 mmol/L (136-145)
[2020-09-18 09:17] LABS: ALBUMIN 3.7 g/dl (3.4-5.0); ANION GAP 4 MMOL/L (8-16); BLOOD UREA NITROGEN 21.8 mg/dL (7-18); CALCIUM 9.6 mg/dL (8.5-10.1); CO2 33 mmol/L (21-32); GLUCOSE,RANDOM 162 mg/dL (74-106)
[2020-09-18 09:19] LABS: SGPT/ALT 26 U/L (13-61)
[2020-09-18 09:20] LABS: SGOT/AST 29 U/L (15-37)
[2020-09-18 09:21] LABS: BILIRUBIN,TOTAL 0.8 mg/dL (0.2-1); TOT PROT 7.7 g/dl (6.4-8.2)
[2020-09-18 09:22] LABS: ALK PHOS 57 U/L (45-117)
[2020-09-18 09:26] LABS: LIPASE 119 U/L (73-393)
[2020-09-18] MEDS ORDERED: morphine CARPU-JECT 2 MG/1 ML DISP.SYRIN IVPUSH ONE ×3 (09:36→14:22)
[2020-09-18] MEDS ORDERED: MORPHINE SULFATE 2 MG/ML VIAL ONE ×3 (09:46→15:46)
[2020-09-18] MEDS ORDERED: LACTATED RINGERS SOLUTION 1000 ML INFUS.BAG IV ONE (11:25)
[2020-09-18] MEDS ORDERED: PIPERACILLIN/TAZOB 3.375 GM 3.375 GM/50 ML BAG IVPB ONE (17:07)
[2020-09-18] MEDS: PIPERACILLIN/TAZOB 3.375 GM 3.375 GM in DEXTROSE 5%-WATER - 50 ML IVPB SCH (17:20)
[2020-09-18] MEDS: DEXTROSE 5%-0.45% SALINE 1,000 ML IV SCH (17:46)
[2020-09-18 20:12] LABS: ALBUMIN 3.3 g/dl (3.4-5.0); CALCIUM 8.3 mg/dL (8.5-10.1)
[2020-09-18 20:13] LABS: BLOOD UREA NITROGEN 14.9 mg/dL (7-18)
[2020-09-18 20:17] LABS: BILIRUBIN,TOTAL 1.2 mg/dL (0.2-1)
[2020-09-18] MEDS ORDERED: metoPROLOL SUCCINATE 25 MG TAB.SR.24H (FP) ONE (22:38)
[2020-09-18] MEDS: metoPROLOL SUCCINATE 25 MG TAB.SR.24H (FP) PO SCH (22:47)
[2020-09-19] MEDS ORDERED: MORPHINE SULFATE 2 MG/ML VIAL ONE ×2 (01:57→08:37)
[2020-09-19] MEDS ORDERED: PIPERACILLIN/TAZOB 3.375 GM 3.375 GM/50 ML BAG IVPB ONE (01:58)
[2020-09-19] MEDS: MORPHINE SULFATE 2 MG/ML VIAL IVPUSH PRN ×3 (02:13→18:33)
[2020-09-19] MEDS: PIPERACILLIN/TAZOB 3.375 GM 3.375 GM in DEXTROSE 5%-WATER - 50 ML IVPB SCH ×3 (02:14→20:56)
[2020-09-19 07:19] LABS: BASO % 0.3 % (0-2.0); EOS % 0.5 % (0-4.5); HEMATOCRIT 39.4 % (32.4-45.2); HEMOGLOBIN 13.4 GM/dL (10.7-15.3); MCH 32.5 pg (25.7-33.7); MCHC 34.1 g/dl (32.0-36.0); MEAN CELL VOLUME 95.3 fl (80-96); MEAN PLT VOLUME 10.6 fl (7.5-11.1); MONO % 8.1 % (3.8-10.2); NEUT % 71.1 % (42.8-82.8); PLATELET COUNT 218 K/MM3 (134-434); RBC 4.14 M/mm3 (3.60-5.2); WHITE BLOOD COUNT 16.6 K/mm3 (4.0-10.0)
[2020-09-19] MEDS ORDERED: PIPERACILLIN/TAZOB 3.375 GM 3.375 GM in DEXTROSE 5%-WATER - 50 ML IVPB SCH (10:00)
[2020-09-19] MEDS ORDERED: DEXTROSE 5%-WATER - 50 ML IVPB ONE ×2 (12:03→20:08)
[2020-09-19] MEDS ORDERED: PIPERACILLIN/TAZOBACTAM 3.375 GM VIAL IVPB ONE ×2 (12:03→20:08)
[2020-09-19 12:36] LABS: BASO % 0.3 % (0-2.0); EOS % 0.5 % (0-4.5); HEMATOCRIT 38.9 % (32.4-45.2); HEMOGLOBIN 12.7 GM/dL (10.7-15.3); LYMPH % 20.8 % (8-40); MCH 31.5 pg (25.7-33.7); MCHC 32.7 g/dl (32.0-36.0); MEAN CELL VOLUME 96.3 fl (80-96); MEAN PLT VOLUME 10.8 fl (7.5-11.1); MONO % 8.2 % (3.8-10.2); NEUT % 70.2 % (42.8-82.8); PLATELET COUNT 218 K/MM3 (134-434); RBC 4.04 M/mm3 (3.60-5.2); RDW 14.5 % (11.6-15.6); WHITE BLOOD COUNT 17.2 K/mm3 (4.0-10.0)
[2020-09-19] MEDS: metoPROLOL SUCCINATE 25 MG TAB.SR.24H (FP) PO SCH ×2 (12:53→21:42)
[2020-09-19] MEDS: DEXTROSE 5%-0.45% SALINE 1,000 ML IV SCH ×4 (12:54→20:01)
[2020-09-19 12:57] LABS: POTASSIUM 3.8 mmol/L (3.5-5.1)
[2020-09-19 12:59] LABS: BLOOD UREA NITROGEN 13.8 mg/dL (7-18); CALCIUM 7.6 mg/dL (8.5-10.1)
[2020-09-19 13:00] LABS: ALBUMIN 2.9 g/dl (3.4-5.0)
[2020-09-19 13:04] LABS: BILIRUBIN,TOTAL 1.3 mg/dL (0.2-1); TOT PROT 6.4 g/dl (6.4-8.2)
[2020-09-19] MEDS ORDERED: BACITRACIN/POLYMYXIN B SULFATE 15 GM TUBE TP SCH (14:00)
[2020-09-19] MEDS ORDERED: ROCURONIUM BROMIDE 50 MG/5 ML SYRINGE ONE (15:01)
[2020-09-19] MEDS ORDERED: PROPOFOL 20 ML ONE ×2 (15:01)
[2020-09-19] MEDS ORDERED: BUPIVACAINE HCL/PF 0.5% (5 MG/ML) 30 ML VIAL IJ ONE ×2 (15:24)
[2020-09-19] MEDS ORDERED: LACTATED RINGERS SOLUTION 1,000 ML IV SCH (16:15)
[2020-09-19] MEDS ORDERED: NEOSTIGMINE METHYLSULFATE 0.5 MG/1 ML - 10 ML MDV ONE (16:32)
[2020-09-19] MEDS ORDERED: ONDANSETRON 4 MG/2 ML VIAL ONE (18:18)
[2020-09-19] MEDS: ONDANSETRON 4 MG/2 ML VIAL IVPB PRN (18:18)
[2020-09-19] MEDS: oxyCODONE HCL 5 MG TABLET PO PRN (21:42)
[2020-09-19] MEDS: FAMOTIDINE 20 MG/50 ML IVPB 20 MG/50 ML MG IVPB SCH (21:42)
[2020-09-19] MEDS: HEPARIN NA (PORCINE) 5,000 UNITS/ML 1ML VIAL SQ SCH (21:44)
[2020-09-19] MEDS: ACETAMINOPHEN 1000 MG/100 ML VIAL (NON FORMULARY) IVPB PRN (22:06)
[2020-09-20] MEDS ORDERED: DEXTROSE 5%-WATER - 50 ML IVPB ONE ×3 (01:15→16:31)
[2020-09-20] MEDS ORDERED: PIPERACILLIN/TAZOBACTAM 3.375 GM VIAL IVPB ONE ×3 (01:15→16:31)
[2020-09-20] MEDS: PIPERACILLIN/TAZOB 3.375 GM 3.375 GM in DEXTROSE 5%-WATER - 50 ML IVPB SCH ×3 (01:24→17:09)
[2020-09-20] MEDS: MORPHINE SULFATE 2 MG/ML VIAL IVPUSH PRN (01:25)
[2020-09-20] MEDS: oxyCODONE HCL 5 MG TABLET PO PRN ×2 (02:25→21:20)
[2020-09-20] MEDS: ACETAMINOPHEN 1000 MG/100 ML VIAL (NON FORMULARY) IVPB PRN (05:30)
[2020-09-20 08:42] LABS: BASO % 0.1 % (0-2.0); HEMATOCRIT 28.7 % (32.4-45.2); HEMOGLOBIN 9.4 GM/dL (10.7-15.3); LYMPH % 12.9 % (8-40); MCH 32.2 pg (25.7-33.7); MCHC 32.7 g/dl (32.0-36.0); MEAN CELL VOLUME 98.3 fl (80-96); MEAN PLT VOLUME 10.8 fl (7.5-11.1); MONO % 6.2 % (3.8-10.2); NEUT % 80.8 % (42.8-82.8); PLATELET COUNT 171 K/MM3 (134-434); RBC 2.92 M/mm3 (3.60-5.2); WHITE BLOOD COUNT 17.4 K/mm3 (4.0-10.0)
[2020-09-20 08:51] LABS: POTASSIUM 3.9 mmol/L (3.5-5.1)
[2020-09-20 08:58] LABS: CREATININE 1.5 mg/dL (0.55-1.3)
[2020-09-20 09:00] LABS: BLOOD UREA NITROGEN 22.4 mg/dL (7-18)
[2020-09-20 09:07] LABS: CALCIUM 6.7 mg/dL (8.5-10.1)
[2020-09-20] MEDS: metoPROLOL SUCCINATE 25 MG TAB.SR.24H (FP) PO SCH ×3 (09:17→21:25)
[2020-09-20] MEDS: HEPARIN NA (PORCINE) 5,000 UNITS/ML 1ML VIAL SQ SCH ×2 (09:17→21:24)
[2020-09-20] MEDS: FAMOTIDINE 20 MG/50 ML IVPB 20 MG/50 ML MG IVPB SCH ×2 (09:17→21:22)
[2020-09-20] MEDS: ONDANSETRON 4 MG/2 ML VIAL IVPB PRN (10:18)
[2020-09-20 11:01] LABS: ALBUMIN 2.2 g/dl (3.4-5.0); BILIRUBIN,TOTAL 1.1 mg/dL (0.2-1); TOT PROT 5.4 g/dl (6.4-8.2)
[2020-09-20] MEDS: POLYETHYLENE GLYCOL 3350 119 GM BTL PO SCH (12:08)
[2020-09-20] MEDS: BACITRACIN/POLYMYXIN B SULFATE 15 GM TUBE TP SCH (12:08)
[2020-09-20] MEDS: DEXTROSE 5%-0.45% SALINE 1,000 ML IV SCH (13:37)
[2020-09-20 13:41] LABS: HEMATOCRIT 30.3 % (32.4-45.2); MCH 32.4 pg (25.7-33.7); MEAN CELL VOLUME 98.2 fl (80-96); MEAN PLT VOLUME 10.9 fl (7.5-11.1); PLATELET COUNT 181 K/MM3 (134-434); RBC 3.09 M/mm3 (3.60-5.2); RDW 14.1 % (11.6-15.6); WHITE BLOOD COUNT 17.5 K/mm3 (4.0-10.0)
[2020-09-20] MEDS ORDERED: DEXTROSE 5%-NORMAL SALINE 1,000 ML IV SCH ×2 (14:15→15:09)
[2020-09-21] MEDS ORDERED: PIPERACILLIN/TAZOBACTAM 3.375 GM VIAL IVPB ONE ×3 (00:35→17:04)
[2020-09-21] MEDS ORDERED: DEXTROSE 5%-WATER - 50 ML IVPB ONE ×3 (00:36→17:04)
[2020-09-21] MEDS: PIPERACILLIN/TAZOB 3.375 GM 3.375 GM in DEXTROSE 5%-WATER - 50 ML IVPB SCH ×3 (02:22→17:35)
[2020-09-21 09:15] LABS: BASO % 0.6 % (0-2.0); EOS % 0.5 % (0-4.5); HEMATOCRIT 27.4 % (32.4-45.2); HEMOGLOBIN 9.2 GM/dL (10.7-15.3); LYMPH % 25.2 % (8-40); MCH 32.6 pg (25.7-33.7); MCHC 33.7 g/dl (32.0-36.0); MEAN CELL VOLUME 96.7 fl (80-96); MEAN PLT VOLUME 9.9 fl (7.5-11.1); MONO % 7.9 % (3.8-10.2); NEUT % 65.8 % (42.8-82.8); PLATELET COUNT 210 K/MM3 (134-434); RBC 2.83 M/mm3 (3.60-5.2); RDW 13.6 % (11.6-15.6); WHITE BLOOD COUNT 10.3 K/mm3 (4.0-10.0)
[2020-09-21 09:28] LABS: POTASSIUM 3.6 mmol/L (3.5-5.1)
[2020-09-21 09:30] LABS: ALBUMIN 2.2 g/dl (3.4-5.0); BLOOD UREA NITROGEN 15.3 mg/dL (7-18)
[2020-09-21] MEDS: HEPARIN NA (PORCINE) 5,000 UNITS/ML 1ML VIAL SQ SCH ×2 (09:30→21:14)
[2020-09-21] MEDS: POLYETHYLENE GLYCOL 3350 119 GM BTL PO SCH (09:31)
[2020-09-21] MEDS: FAMOTIDINE 20 MG/50 ML IVPB 20 MG/50 ML MG IVPB SCH ×2 (09:31→21:14)
[2020-09-21 09:34] LABS: CREATININE 1.1 mg/dL (0.55-1.3)
[2020-09-21 09:35] LABS: BILIRUBIN,TOTAL 0.7 mg/dL (0.2-1); TOT PROT 5.4 g/dl (6.4-8.2)
[2020-09-21 09:43] LABS: CALCIUM 6.8 mg/dL (8.5-10.1)
[2020-09-21] MEDS: metoPROLOL SUCCINATE 25 MG TAB.SR.24H (FP) PO SCH ×2 (09:52→21:14)
[2020-09-21] MEDS: BACITRACIN/POLYMYXIN B SULFATE 15 GM TUBE TP SCH (12:12)
[2020-09-21 14:42] VITALS: BMI 21.7
[2020-09-21] MEDS ORDERED: MINERAL OIL ENEMA 133 ML ENEMA PR ONE (16:58)
[2020-09-21] MEDS ORDERED: MORPHINE SULFATE 2 MG/ML VIAL IVPUSH ONE (17:01)
[2020-09-21] MEDS ORDERED: oxyCODONE HCL 5 MG TABLET PO PRN (17:15)
[2020-09-21] MEDS ORDERED: ACETAMINOPHEN 325 MG TABLET (FP) PO PRN (17:15)
[2020-09-22] MEDS ORDERED: PIPERACILLIN/TAZOBACTAM 3.375 GM VIAL IVPB ONE ×3 (01:40→17:13)
[2020-09-22] MEDS ORDERED: DEXTROSE 5%-WATER - 50 ML IVPB ONE ×3 (01:41→17:13)
[2020-09-22] MEDS: PIPERACILLIN/TAZOB 3.375 GM 3.375 GM in DEXTROSE 5%-WATER - 50 ML IVPB SCH ×3 (01:43→17:43)
[2020-09-22 08:51] LABS: BASO % 0.6 % (0-2.0); EOS % 1.7 % (0-4.5); HEMATOCRIT 26.1 % (32.4-45.2); HEMOGLOBIN 8.8 GM/dL (10.7-15.3); LYMPH % 27.7 % (8-40); MCH 32.8 pg (25.7-33.7); MCHC 33.7 g/dl (32.0-36.0); MEAN CELL VOLUME 97.3 fl (80-96); MEAN PLT VOLUME 9.6 fl (7.5-11.1); MONO % 8.2 % (3.8-10.2); NEUT % 61.8 % (42.8-82.8); PLATELET COUNT 243 K/MM3 (134-434); RBC 2.68 M/mm3 (3.60-5.2); RDW 13.7 % (11.6-15.6); WHITE BLOOD COUNT 8.6 K/mm3 (4.0-10.0)
[2020-09-22] MEDS: metoPROLOL SUCCINATE 25 MG TAB.SR.24H (FP) PO SCH (09:26)
[2020-09-22] MEDS: FAMOTIDINE 20 MG/50 ML IVPB 20 MG/50 ML MG IVPB SCH (09:26)
[2020-09-22] MEDS: POLYETHYLENE GLYCOL 3350 119 GM BTL PO SCH (09:27)
[2020-09-22] MEDS: PNEUMOC 13-VAL CONJ-DIP CRM/PF 0.5 ML DISP.SYRIN IM ONE ×2 (09:29→11:44)
[2020-09-22] MEDS ORDERED: APIXABAN 5 MG TABLET PO SCH (10:00)
[2020-09-22] MEDS: BACITRACIN/POLYMYXIN B SULFATE 15 GM TUBE TP SCH (11:46)
[2020-09-22] MEDS: SODIUM CHLORIDE 1,000 ML IV SCH (22:30)
[2020-09-22 23:11] LABS: BASO % 0.4 % (0-2.0); EOS % 1.3 % (0-4.5); HEMATOCRIT 25.3 % (32.4-45.2); HEMOGLOBIN 8.4 GM/dL (10.7-15.3); LYMPH % 23.3 % (8-40); MCH 32.2 pg (25.7-33.7); MCHC 33.3 g/dl (32.0-36.0); MEAN CELL VOLUME 96.8 fl (80-96); MEAN PLT VOLUME 9.2 fl (7.5-11.1); MONO % 6.1 % (3.8-10.2); NEUT % 68.9 % (42.8-82.8); PLATELET COUNT 247 K/MM3 (134-434); RBC 2.61 M/mm3 (3.60-5.2); RDW 13.6 % (11.6-15.6)
[2020-09-23] MEDS: metoPROLOL SUCCINATE 25 MG TAB.SR.24H (FP) PO SCH ×3 (00:21→21:40)
[2020-09-23] MEDS ORDERED: DEXTROSE 5%-WATER - 50 ML IVPB ONE ×3 (01:46→16:55)
[2020-09-23] MEDS ORDERED: PIPERACILLIN/TAZOBACTAM 3.375 GM VIAL IVPB ONE ×3 (01:46→16:55)
[2020-09-23] MEDS: PIPERACILLIN/TAZOB 3.375 GM 3.375 GM in DEXTROSE 5%-WATER - 50 ML IVPB SCH ×3 (02:40→17:14)
[2020-09-23 09:04] LABS: BASO % 0.4 % (0-2.0); EOS % 0.9 % (0-4.5); HEMATOCRIT 29.8 % (32.4-45.2); HEMOGLOBIN 10.1 GM/dL (10.7-15.3); LYMPH % 27.2 % (8-40); MCH 32.8 pg (25.7-33.7); MEAN CELL VOLUME 96.6 fl (80-96); MEAN PLT VOLUME 9.3 fl (7.5-11.1); MONO % 6.2 % (3.8-10.2); NEUT % 65.3 % (42.8-82.8); PLATELET COUNT 319 K/MM3 (134-434); RBC 3.08 M/mm3 (3.60-5.2); RDW 13.1 % (11.6-15.6); WHITE BLOOD COUNT 10.6 K/mm3 (4.0-10.0)
[2020-09-23] MEDS: SODIUM CHLORIDE 1,000 ML IV SCH (09:17)
[2020-09-23 09:19] LABS: POTASSIUM 4.1 mmol/L (3.5-5.1)
[2020-09-23 09:25] LABS: CALCIUM 7.4 mg/dL (8.5-10.1)
[2020-09-23 09:26] LABS: ALBUMIN 2.4 g/dl (3.4-5.0); BLOOD UREA NITROGEN 11.5 mg/dL (7-18); MAGNESIUM 2.2 mg/dL (1.8-2.4)
[2020-09-23 09:29] LABS: CREATININE 0.8 mg/dL (0.55-1.3); PHOSPHOROUS 1.8 mg/dL (2.5-4.9)
[2020-09-23 09:30] LABS: BILIRUBIN,TOTAL 0.9 mg/dL (0.2-1); TOT PROT 6.2 g/dl (6.4-8.2)
[2020-09-23] MEDS: POLYETHYLENE GLYCOL 3350 119 GM BTL PO SCH (09:45)
[2020-09-23] MEDS ORDERED: FAMOTIDINE 20 MG TABLET PO SCH (10:00)
[2020-09-23] MEDS: BACITRACIN/POLYMYXIN B SULFATE 15 GM TUBE TP SCH (12:32)
[2020-09-23] MEDS ORDERED: UBIDECARENONE 10 MG PO SCH (16:00)
[2020-09-23] MEDS ORDERED: PATIENT'S OWN MEDICATION (NON-FORMULARY) (Biotin [Biotin] 1 MG Capsule) PO SCH (16:00)
[2020-09-23] MEDS ORDERED: METOPROLOL TARTRATE 5 MG/5 ML VIAL IVPUSH ONE (16:04)
[2020-09-23] MEDS: CHOLECALCIFEROL (VIT D3) 5000 UNITS (125 MCG) CAP PO SCH (17:14)
[2020-09-23] MEDS: ZINC SULFATE 220 MG CAPSULE (FP) PO SCH (17:14)
[2020-09-23] MEDS: ASCORBIC ACID 500 MG TABLET (FP) PO SCH (17:14)
[2020-09-23] MEDS: VITAMIN B COMPLEX W/C COMBO TABLET (FP) PO SCH (17:14)
[2020-09-23 17:36] LABS: HEMATOCRIT 28.4 % (32.4-45.2); HEMOGLOBIN 9.7 GM/dL (10.7-15.3); MCH 32.9 pg (25.7-33.7); MCHC 34.1 g/dl (32.0-36.0); MEAN CELL VOLUME 96.4 fl (80-96); MEAN PLT VOLUME 9.4 fl (7.5-11.1); PLATELET COUNT 305 K/MM3 (134-434); RBC 2.95 M/mm3 (3.60-5.2); RDW 13.3 % (11.6-15.6); WHITE BLOOD COUNT 10.5 K/mm3 (4.0-10.0)
[2020-09-23] MEDS: OMEGA-3 ACID ETHYL ESTERS (FATTY-ACIDS) 1 GM CAPSULE (FP) PO SCH (17:47)
[2020-09-23] MEDS: ONDANSETRON 4 MG/2 ML VIAL IVPB PRN (18:47)
[2020-09-24] MEDS ORDERED: PIPERACILLIN/TAZOBACTAM 3.375 GM VIAL IVPB ONE ×3 (01:27→18:40)
[2020-09-24] MEDS ORDERED: DEXTROSE 5%-WATER - 50 ML IVPB ONE ×3 (01:28→18:40)
[2020-09-24] MEDS: PIPERACILLIN/TAZOB 3.375 GM 3.375 GM in DEXTROSE 5%-WATER - 50 ML IVPB SCH ×3 (01:29→18:44)
[2020-09-24] MEDS ORDERED: PANTOPRAZOLE 40 MG TABLET PO ONE (03:36)
[2020-09-24] MEDS ORDERED: METOPROLOL TARTRATE 5 MG/5 ML VIAL IVPUSH ONE (03:36)
[2020-09-24] MEDS ORDERED: ASPIRIN 81 MG CHEWABLE TABLETS ONE (03:44)
[2020-09-24] MEDS ORDERED: PANTOPRAZOLE SODIUM 40 MG VIAL IVPUSH ONE (03:53)
[2020-09-24] MEDS ORDERED: dilTIAZem HCL 50 MG/10 ML - 10 ML VIAL IVPUSH ONE ×2 (03:57→04:12)
[2020-09-24] MEDS: ACETAMINOPHEN 1000 MG/100 ML VIAL (NON FORMULARY) IVPB PRN (04:00)
[2020-09-24] MEDS ORDERED: SODIUM CHLORIDE 250 ML IV STA (04:24)
[2020-09-24] MEDS ORDERED: DIGOXIN 0.5 MG/2 ML AMPUL IVPUSH ONE (04:29)
[2020-09-24 04:39] LABS: BASO % 0.3 % (0-2.0); EOS % 2.3 % (0-4.5); HEMOGLOBIN 8.6 GM/dL (10.7-15.3); LYMPH % 18.3 % (8-40); MCHC 33.1 g/dl (32.0-36.0); MEAN CELL VOLUME 96.7 fl (80-96); MEAN PLT VOLUME 9.4 fl (7.5-11.1); MONO % 7.6 % (3.8-10.2); NEUT % 71.5 % (42.8-82.8); PLATELET COUNT 295 K/MM3 (134-434); RBC 2.69 M/mm3 (3.60-5.2); RDW 13.6 % (11.6-15.6); WHITE BLOOD COUNT 11.1 K/mm3 (4.0-10.0)
[2020-09-24 04:58] LABS: CHLORIDE 112 mmol/L (98-107); POTASSIUM 3.7 mmol/L (3.5-5.1); SODIUM 140 mmol/L (136-145)
[2020-09-24 05:00] LABS: ALBUMIN 2.1 g/dl (3.4-5.0)
[2020-09-24 05:01] LABS: ANION GAP 7 MMOL/L (8-16); BLOOD UREA NITROGEN 7.7 mg/dL (7-18); CO2 21 mmol/L (21-32); GLUCOSE,RANDOM 91 mg/dL (74-106); MAGNESIUM 1.7 mg/dL (1.8-2.4)
[2020-09-24 05:03] LABS: SGPT/ALT 37 U/L (13-61)
[2020-09-24 05:04] LABS: CREATININE 0.6 mg/dL (0.55-1.3); PHOSPHOROUS 1.3 mg/dL (2.5-4.9); SGOT/AST 37 U/L (15-37)
[2020-09-24 05:05] LABS: BILIRUBIN,TOTAL 0.8 mg/dL (0.2-1); TOT PROT 5.4 g/dl (6.4-8.2)
[2020-09-24 05:06] LABS: ALK PHOS 43 U/L (45-117)
[2020-09-24 05:13] LABS: CALCIUM 6.1 mg/dL (8.5-10.1)
[2020-09-24] MEDS ORDERED: POTASSIUM PHOSPHATE 30 MM in SODIUM CHLORIDE 500 ML IVPB ONE (05:32)
[2020-09-24] MEDS ORDERED: MAGNESIUM SULF 50% (8.12 MEQ/2 ML-1 GM VIAL) IVPB ONE (05:32)
[2020-09-24] MEDS: dilTIAZem HCL 30 MG TABLET PO SCH ×2 (06:00→11:45)
[2020-09-24] MEDS: SODIUM CHLORIDE 1,000 ML IV SCH ×3 (06:45→22:52)
[2020-09-24] MEDS: DILTIAZEM INJECTION 125 MG in SODIUM CHLORIDE 100 ML IVPB SCH ×2 (06:48→14:15)
[2020-09-24] MEDS ORDERED: CALCIUM GLUCONATE 10% - 1,000 MG/10 ML VIAL IVPUSH ONE (09:15)
[2020-09-24] MEDS: oxyCODONE HCL 5 MG TABLET PO PRN (09:28)
[2020-09-24] MEDS: ZINC SULFATE 220 MG CAPSULE (FP) PO SCH (09:42)
[2020-09-24] MEDS: ASCORBIC ACID 500 MG TABLET (FP) PO SCH (09:42)
[2020-09-24] MEDS: metoPROLOL SUCCINATE 25 MG TAB.SR.24H (FP) PO SCH ×2 (09:42→22:52)
[2020-09-24] MEDS: FAMOTIDINE 20 MG TABLET PO SCH (09:43)
[2020-09-24] MEDS: OMEGA-3 ACID ETHYL ESTERS (FATTY-ACIDS) 1 GM CAPSULE (FP) PO SCH (09:43)
[2020-09-24] MEDS: VITAMIN B COMPLEX W/C COMBO TABLET (FP) PO SCH (09:44)
[2020-09-24] MEDS: POLYETHYLENE GLYCOL 3350 119 GM BTL PO SCH (10:25)
[2020-09-24] MEDS ORDERED: PT OWN MED DRAWER 7, Y5N ONE (11:13)
[2020-09-24 13:36] LABS: BASO % 0.5 % (0-2.0); EOS % 1.2 % (0-4.5); HEMATOCRIT 31.5 % (32.4-45.2); HEMOGLOBIN 10.4 GM/dL (10.7-15.3); LYMPH % 21.5 % (8-40); MCHC 32.9 g/dl (32.0-36.0); MEAN PLT VOLUME 8.7 fl (7.5-11.1); MONO % 7.4 % (3.8-10.2); NEUT % 69.4 % (42.8-82.8); PLATELET COUNT 382 K/MM3 (134-434); RBC 3.25 M/mm3 (3.60-5.2); RDW 13.8 % (11.6-15.6); WHITE BLOOD COUNT 11.5 K/mm3 (4.0-10.0)
[2020-09-24] MEDS: CHOLECALCIFEROL (VIT D3) 5000 UNITS (125 MCG) CAP PO SCH (14:27)
[2020-09-24] MEDS: dilTIAZem HCL 60 MG TABLET PO SCH (18:46)
[2020-09-24] MEDS ORDERED: MORPHINE SULFATE 2 MG/ML VIAL ONE (22:57)
[2020-09-24] MEDS: ONDANSETRON 4 MG/2 ML VIAL IVPB PRN (23:00)
[2020-09-24] MEDS ORDERED: morphine SULFATE 4 MG/ML VIAL IVPUSH ONE (23:45)
[2020-09-25] MEDS: metoPROLOL SUCCINATE 25 MG TAB.SR.24H (FP) PO SCH ×2 (00:42→01:10)
[2020-09-25] MEDS ORDERED: PIPERACILLIN/TAZOBACTAM 3.375 GM VIAL IVPB ONE ×4 (01:02→23:05)
[2020-09-25] MEDS ORDERED: DEXTROSE 5%-WATER - 50 ML IVPB ONE ×4 (01:03→23:06)
[2020-09-25] MEDS: PIPERACILLIN/TAZOB 3.375 GM 3.375 GM in DEXTROSE 5%-WATER - 50 ML IVPB SCH ×3 (01:11→18:14)
[2020-09-25] MEDS: DILTIAZEM INJECTION 125 MG in SODIUM CHLORIDE 100 ML IVPB SCH (05:00)
[2020-09-25] MEDS: dilTIAZem HCL 60 MG TABLET PO SCH ×3 (06:01→22:00)
[2020-09-25 07:40] LABS: BASO % 0.5 % (0-2.0); EOS % 1.6 % (0-4.5); HEMATOCRIT 32.4 % (32.4-45.2); LYMPH % 19.5 % (8-40); MCH 31.9 pg (25.7-33.7); MEAN CELL VOLUME 93.9 fl (80-96); MEAN PLT VOLUME 9.1 fl (7.5-11.1); MONO % 7.8 % (3.8-10.2); NEUT % 70.6 % (42.8-82.8); PLATELET COUNT 386 K/MM3 (134-434); RBC 3.45 M/mm3 (3.60-5.2); WHITE BLOOD COUNT 11.8 K/mm3 (4.0-10.0)
[2020-09-25 07:58] LABS: POTASSIUM 4.3 mmol/L (3.5-5.1)
[2020-09-25 08:19] LABS: BLOOD UREA NITROGEN 8.4 mg/dL (7-18); MAGNESIUM 2.1 mg/dL (1.8-2.4)
[2020-09-25 08:21] LABS: CREATININE 0.7 mg/dL (0.55-1.3)
[2020-09-25 08:23] LABS: TOT PROT 5.6 g/dl (6.4-8.2)
[2020-09-25 08:32] LABS: CALCIUM 6.4 mg/dL (8.5-10.1)
[2020-09-25] MEDS ORDERED: CALCIUM GLUCONATE 10% - 1,000 MG/10 ML VIAL IVPUSH ONE (08:36)
[2020-09-25] MEDS: ACETAMINOPHEN 1000 MG/100 ML VIAL (NON FORMULARY) IVPB PRN (09:29)
[2020-09-25] MEDS: VITAMIN B COMPLEX W/C COMBO TABLET (FP) PO SCH (09:40)
[2020-09-25] MEDS: oxyCODONE HCL 5 MG TABLET PO PRN ×2 (09:40→18:29)
[2020-09-25] MEDS: FAMOTIDINE 20 MG TABLET PO SCH (09:40)
[2020-09-25] MEDS: OMEGA-3 ACID ETHYL ESTERS (FATTY-ACIDS) 1 GM CAPSULE (FP) PO SCH (09:44)
[2020-09-25] MEDS: POLYETHYLENE GLYCOL 3350 119 GM BTL PO SCH (09:47)
[2020-09-25] MEDS: BACITRACIN/POLYMYXIN B SULFATE 15 GM TUBE TP SCH (09:52)
[2020-09-25] MEDS ORDERED: PT OWN MED DRAWER 7, Y5N ONE (12:22)
[2020-09-25] MEDS ORDERED: CALCIUM GLUCONATE 10% - 1,000 MG/10 ML VIAL ONE (13:21)
[2020-09-25] MEDS: CHOLECALCIFEROL (VIT D3) 5000 UNITS (125 MCG) CAP PO SCH (13:23)
[2020-09-25] MEDS: ONDANSETRON 4 MG/2 ML VIAL IVPB PRN (18:10)
[2020-09-25] MEDS ORDERED: PANTOPRAZOLE SODIUM 40 MG VIAL IVPUSH ONE (18:18)
[2020-09-25] MEDS: ACETAMINOPHEN 325 MG TABLET (FP) PO PRN (18:27)
[2020-09-25] MEDS ORDERED: INSULIN (NOVOLOG) ASPART 100 UNITS/ML 10ML VIAL ONE (21:27)
[2020-09-25] MEDS: APIXABAN 5 MG TABLET PO SCH (22:00)
[2020-09-25] MEDS: SODIUM CHLORIDE 1,000 ML IV SCH (23:01)
[2020-09-26] MEDS: PIPERACILLIN/TAZOB 3.375 GM 3.375 GM in DEXTROSE 5%-WATER - 50 ML IVPB SCH ×2 (01:50→10:12)
[2020-09-26 07:04] LABS: POTASSIUM 4.1 mmol/L (3.5-5.1)
[2020-09-26 07:09] LABS: BLOOD UREA NITROGEN 8.7 mg/dL (7-18); MAGNESIUM 2.2 mg/dL (1.8-2.4)
[2020-09-26 07:12] LABS: CREATININE 0.6 mg/dL (0.55-1.3); PHOSPHOROUS 1.9 mg/dL (2.5-4.9)
[2020-09-26 07:13] LABS: BILIRUBIN,TOTAL 1.2 mg/dL (0.2-1)
[2020-09-26 07:14] LABS: TOT PROT 5.4 g/dl (6.4-8.2)
[2020-09-26] MEDS: dilTIAZem HCL 60 MG TABLET PO SCH ×4 (07:21→20:56)
[2020-09-26 07:48] LABS: CALCIUM 6.8 mg/dL (8.5-10.1)
[2020-09-26 09:08] LABS: BASO % 0.4 % (0-2.0); EOS % 2.5 % (0-4.5); HEMATOCRIT 37.7 % (32.4-45.2); HEMOGLOBIN 12.3 GM/dL (10.7-15.3); LYMPH % 14.8 % (8-40); MCH 31.4 pg (25.7-33.7); MCHC 32.6 g/dl (32.0-36.0); MEAN CELL VOLUME 96.4 fl (80-96); MEAN PLT VOLUME 9.4 fl (7.5-11.1); MONO % 7.3 % (3.8-10.2); PLATELET COUNT 395 K/MM3 (134-434); RBC 3.91 M/mm3 (3.60-5.2); RDW 16.3 % (11.6-15.6); WHITE BLOOD COUNT 12.1 K/mm3 (4.0-10.0)
[2020-09-26] MEDS ORDERED: DEXTROSE 5%-WATER - 50 ML IVPB ONE (10:04)
[2020-09-26] MEDS ORDERED: PIPERACILLIN/TAZOBACTAM 3.375 GM VIAL IVPB ONE (10:04)
[2020-09-26] MEDS ORDERED: PT OWN MED DRAWER 7, Y5N ONE (10:04)
[2020-09-26] MEDS: BACITRACIN/POLYMYXIN B SULFATE 15 GM TUBE TP SCH ×2 (10:08→10:11)
[2020-09-26] MEDS: APIXABAN 5 MG TABLET PO SCH (10:09)
[2020-09-26] MEDS: OMEGA-3 ACID ETHYL ESTERS (FATTY-ACIDS) 1 GM CAPSULE (FP) PO SCH (10:09)
[2020-09-26] MEDS: DILTIAZEM INJECTION 125 MG in SODIUM CHLORIDE 100 ML IVPB SCH (10:09)
[2020-09-26] MEDS: oxyCODONE HCL 5 MG TABLET PO PRN (10:10)
[2020-09-26] MEDS: FAMOTIDINE 20 MG TABLET PO SCH (10:10)
[2020-09-26] MEDS: VITAMIN B COMPLEX W/C COMBO TABLET (FP) PO SCH (10:10)
[2020-09-26] MEDS: ACETAMINOPHEN 325 MG TABLET (FP) PO PRN (10:11)
[2020-09-26] MEDS: POLYETHYLENE GLYCOL 3350 119 GM BTL PO SCH (10:16)
[2020-09-26] MEDS: CHOLECALCIFEROL (VIT D3) 5000 UNITS (125 MCG) CAP PO SCH (11:18)
[2020-09-26] MEDS ORDERED: dilTIAZem HCL 60 MG TABLET PO SCH (18:00)
[2020-09-26] MEDS ORDERED: HEPARIN NA (PORCINE) 5,000 UNITS/ML 1ML VIAL IVPUSH PRN ×2 (18:20)
[2020-09-26] MEDS: HEPARIN INFUSION - 25,000 UNITS/500 ML INFUS.BAG IVPB SCH ×2 (19:30→20:57)
[2020-09-26] MEDS: SODIUM CHLORIDE 1,000 ML IV SCH (20:57)
[2020-09-27] MEDS: dilTIAZem HCL 60 MG TABLET PO SCH ×3 (00:21→11:39)
[2020-09-27] MEDS ORDERED: dilTIAZem HCL 25 MG/5 ML - 5 ML VIAL ONE (07:24)
[2020-09-27] MEDS: DILTIAZEM INJECTION 125 MG in SODIUM CHLORIDE 100 ML IVPB SCH (07:51)
[2020-09-27] MEDS ORDERED: PT OWN MED DRAWER 7, Y5N ONE ×2 (09:10→17:45)
[2020-09-27] MEDS: POLYETHYLENE GLYCOL 3350 119 GM BTL PO SCH (09:17)
[2020-09-27] MEDS: FAMOTIDINE 20 MG TABLET PO SCH (09:17)
[2020-09-27] MEDS: OMEGA-3 ACID ETHYL ESTERS (FATTY-ACIDS) 1 GM CAPSULE (FP) PO SCH (09:17)
[2020-09-27] MEDS: BACITRACIN/POLYMYXIN B SULFATE 15 GM TUBE TP SCH (09:17)
[2020-09-27] MEDS: VITAMIN B COMPLEX W/C COMBO TABLET (FP) PO SCH (09:17)
[2020-09-27] MEDS: CHOLECALCIFEROL (VIT D3) 5000 UNITS (125 MCG) CAP PO SCH (09:17)
[2020-09-27 13:14] LABS: BASO % 0.5 % (0-2.0); EOS % 0.8 % (0-4.5); HEMATOCRIT 33.6 % (32.4-45.2); HEMOGLOBIN 11.3 GM/dL (10.7-15.3); LYMPH % 16.1 % (8-40); MCH 31.7 pg (25.7-33.7); MCHC 33.6 g/dl (32.0-36.0); MEAN CELL VOLUME 94.5 fl (80-96); MEAN PLT VOLUME 9.2 fl (7.5-11.1); MONO % 7.1 % (3.8-10.2); NEUT % 75.5 % (42.8-82.8); PLATELET COUNT 540 K/MM3 (134-434); RBC 3.55 M/mm3 (3.60-5.2); RDW 15.7 % (11.6-15.6); WHITE BLOOD COUNT 11.7 K/mm3 (4.0-10.0)
[2020-09-27 13:16] LABS: POTASSIUM 4.1 mmol/L (3.5-5.1)
[2020-09-27 13:18] LABS: CALCIUM 7.2 mg/dL (8.5-10.1)
[2020-09-27 13:19] LABS: ALBUMIN 2.1 g/dl (3.4-5.0); BLOOD UREA NITROGEN 7.6 mg/dL (7-18)
[2020-09-27 13:22] LABS: CREATININE 0.6 mg/dL (0.55-1.3)
[2020-09-27 13:24] LABS: BILIRUBIN,TOTAL 0.7 mg/dL (0.2-1); TOT PROT 5.8 g/dl (6.4-8.2)
[2020-09-27] MEDS ORDERED: metoPROLOL SUCCINATE 25 MG TAB.SR.24H (FP) PO ONE (14:52)
[2020-09-27] MEDS: HEPARIN INFUSION - 25,000 UNITS/500 ML INFUS.BAG IVPB SCH (18:00)
[2020-09-27] MEDS ORDERED: dilTIAZem HCL 60 MG TABLET ONE (23:37)
[2020-09-27] MEDS ORDERED: dilTIAZem HCL 30 MG TABLET ONE (23:37)
[2020-09-28] MEDS ORDERED: DILTIAZEM 60 MG, DILTIAZEM 30 MG PO SCH
[2020-09-28 07:46] LABS: BASO % 0.6 % (0-2.0); EOS % 1.2 % (0-4.5); HEMATOCRIT 31.5 % (32.4-45.2); HEMOGLOBIN 10.7 GM/dL (10.7-15.3); LYMPH % 17.9 % (8-40); MCH 31.6 pg (25.7-33.7); MCHC 33.8 g/dl (32.0-36.0); MEAN CELL VOLUME 93.4 fl (80-96); MEAN PLT VOLUME 9.1 fl (7.5-11.1); NEUT % 73.3 % (42.8-82.8); PLATELET COUNT 533 K/MM3 (134-434); RBC 3.38 M/mm3 (3.60-5.2); RDW 15.5 % (11.6-15.6); WHITE BLOOD COUNT 11.1 K/mm3 (4.0-10.0)
[2020-09-28 08:10] LABS: POTASSIUM 4.2 mmol/L (3.5-5.1)
[2020-09-28 08:13] LABS: BLOOD UREA NITROGEN 9.3 mg/dL (7-18); CALCIUM 7.8 mg/dL (8.5-10.1)
[2020-09-28 08:17] LABS: CREATININE 0.7 mg/dL (0.55-1.3)
[2020-09-28 08:18] LABS: ALBUMIN 2.1 g/dl (3.4-5.0); TOT PROT 5.6 g/dl (6.4-8.2)
[2020-09-28] MEDS ORDERED: PT OWN MED DRAWER 7, Y5N ONE (09:06)
[2020-09-28] MEDS: DILTIAZEM INJECTION 125 MG in SODIUM CHLORIDE 100 ML IVPB SCH (09:37)
[2020-09-28] MEDS: VITAMIN B COMPLEX W/C COMBO TABLET (FP) PO SCH (09:38)
[2020-09-28] MEDS: OMEGA-3 ACID ETHYL ESTERS (FATTY-ACIDS) 1 GM CAPSULE (FP) PO SCH (09:38)
[2020-09-28] MEDS: FAMOTIDINE 20 MG TABLET PO SCH (09:38)
[2020-09-28] MEDS: CHOLECALCIFEROL (VIT D3) 5000 UNITS (125 MCG) CAP PO SCH (09:38)
[2020-09-28] MEDS: POLYETHYLENE GLYCOL 3350 119 GM BTL PO SCH (09:39)
[2020-09-28] MEDS: BACITRACIN/POLYMYXIN B SULFATE 15 GM TUBE TP SCH (09:39)
[2020-09-28 11:11] LABS: HEMATOCRIT 34.2 % (32.4-45.2); HEMOGLOBIN 11.2 GM/dL (10.7-15.3); MCHC 32.7 g/dl (32.0-36.0); MEAN CELL VOLUME 94.7 fl (80-96); PLATELET COUNT 571 K/MM3 (134-434); RBC 3.62 M/mm3 (3.60-5.2); RDW 15.6 % (11.6-15.6); WHITE BLOOD COUNT 11.6 K/mm3 (4.0-10.0)
[2020-09-28] MEDS ORDERED: metoPROLOL SUCCINATE 25 MG TAB.SR.24H (FP) PO ONE (11:26)
[2020-09-28] MEDS: HEPARIN INFUSION - 25,000 UNITS/500 ML INFUS.BAG IVPB SCH (21:26)
[2020-09-29] MEDS ORDERED: PT OWN MED DRAWER 7, Y5N ONE ×5 (00:56→17:58)
[2020-09-29 08:01] LABS: BASO % 0.4 % (0-2.0); EOS % 1.9 % (0-4.5); HEMATOCRIT 33.2 % (32.4-45.2); LYMPH % 18.1 % (8-40); MCH 31.2 pg (25.7-33.7); MCHC 33.1 g/dl (32.0-36.0); MEAN CELL VOLUME 94.5 fl (80-96); MEAN PLT VOLUME 9.1 fl (7.5-11.1); MONO % 6.9 % (3.8-10.2); NEUT % 72.7 % (42.8-82.8); PLATELET COUNT 564 K/MM3 (134-434); RBC 3.51 M/mm3 (3.60-5.2); RDW 15.5 % (11.6-15.6); WHITE BLOOD COUNT 11.3 K/mm3 (4.0-10.0)
[2020-09-29 08:23] LABS: POTASSIUM 4.4 mmol/L (3.5-5.1)
[2020-09-29 08:29] LABS: ALBUMIN 2.3 g/dl (3.4-5.0); BLOOD UREA NITROGEN 8.1 mg/dL (7-18); CALCIUM 8.5 mg/dL (8.5-10.1); MAGNESIUM 2.3 mg/dL (1.8-2.4)
[2020-09-29 08:32] LABS: BILIRUBIN,TOTAL 0.6 mg/dL (0.2-1); CREATININE 0.8 mg/dL (0.55-1.3); TOT PROT 6.1 g/dl (6.4-8.2)
[2020-09-29 08:33] LABS: PHOSPHOROUS 2.5 mg/dL (2.5-4.9)
[2020-09-29] MEDS: VITAMIN B COMPLEX W/C COMBO TABLET (FP) PO SCH (11:00)
[2020-09-29] MEDS: OMEGA-3 ACID ETHYL ESTERS (FATTY-ACIDS) 1 GM CAPSULE (FP) PO SCH (11:00)
[2020-09-29] MEDS: CHOLECALCIFEROL (VIT D3) 5000 UNITS (125 MCG) CAP PO SCH (11:00)
[2020-09-29] MEDS: FAMOTIDINE 20 MG TABLET PO SCH (11:00)
[2020-09-29] MEDS: POLYETHYLENE GLYCOL 3350 119 GM BTL PO SCH (11:04)
[2020-09-29] MEDS: BACITRACIN/POLYMYXIN B SULFATE 15 GM TUBE TP SCH (13:08)
[2020-09-29] MEDS: HEPARIN INFUSION - 25,000 UNITS/500 ML INFUS.BAG IVPB SCH (14:37)
[2020-09-29 16:33] LABS: HEMATOCRIT 33.4 % (32.4-45.2); HEMOGLOBIN 11.1 GM/dL (10.7-15.3); MCH 31.4 pg (25.7-33.7); MCHC 33.3 g/dl (32.0-36.0); MEAN CELL VOLUME 94.1 fl (80-96); MEAN PLT VOLUME 8.9 fl (7.5-11.1); PLATELET COUNT 564 K/MM3 (134-434); RBC 3.55 M/mm3 (3.60-5.2); RDW 15.6 % (11.6-15.6)
[2020-09-29] MEDS: APIXABAN 5 MG TABLET PO SCH (21:27)
[2020-09-29] MEDS ORDERED: BENZOCAINE/MENTH/CETYLPYRD CL 1 EACH LOZENGE MM PRN (22:43)
[2020-09-30] MEDS ORDERED: PT OWN MED DRAWER 7, Y5N ONE ×5 (00:49→23:13)
[2020-09-30 08:26] LABS: BASO % 0.7 % (0-2.0); EOS % 1.8 % (0-4.5); HEMATOCRIT 31.3 % (32.4-45.2); HEMOGLOBIN 10.4 GM/dL (10.7-15.3); MCH 31.7 pg (25.7-33.7); MCHC 33.2 g/dl (32.0-36.0); MEAN CELL VOLUME 95.5 fl (80-96); MEAN PLT VOLUME 9.5 fl (7.5-11.1); NEUT % 72.5 % (42.8-82.8); PLATELET COUNT 555 K/MM3 (134-434); RBC 3.28 M/mm3 (3.60-5.2); RDW 15.5 % (11.6-15.6); WHITE BLOOD COUNT 11.4 K/mm3 (4.0-10.0)
[2020-09-30 08:38] LABS: POTASSIUM 4.7 mmol/L (3.5-5.1)
[2020-09-30 08:41] LABS: ALBUMIN 2.3 g/dl (3.4-5.0)
[2020-09-30 08:42] LABS: BLOOD UREA NITROGEN 9.7 mg/dL (7-18); CALCIUM 8.8 mg/dL (8.5-10.1); MAGNESIUM 2.2 mg/dL (1.8-2.4)
[2020-09-30 08:45] LABS: BILIRUBIN,TOTAL 0.6 mg/dL (0.2-1); CREATININE 0.7 mg/dL (0.55-1.3); PHOSPHOROUS 4.6 mg/dL (2.5-4.9)
[2020-09-30] MEDS ORDERED: FUROSEMIDE 40 MG/4 ML INJECTABLE VIAL IVPUSH ONE (09:25)
[2020-09-30] MEDS: OMEGA-3 ACID ETHYL ESTERS (FATTY-ACIDS) 1 GM CAPSULE (FP) PO SCH (09:28)
[2020-09-30] MEDS: CHOLECALCIFEROL (VIT D3) 5000 UNITS (125 MCG) CAP PO SCH (09:28)
[2020-09-30] MEDS: APIXABAN 5 MG TABLET PO SCH ×2 (09:28→21:11)
[2020-09-30] MEDS: POLYETHYLENE GLYCOL 3350 119 GM BTL PO SCH (09:30)
[2020-09-30] MEDS: VITAMIN B COMPLEX W/C COMBO TABLET (FP) PO SCH (09:31)
[2020-09-30] MEDS: BACITRACIN/POLYMYXIN B SULFATE 15 GM TUBE TP SCH (09:31)
[2020-09-30] MEDS: FAMOTIDINE 20 MG TABLET PO SCH (09:51)
[2020-09-30 11:35] LABS: HEMATOCRIT 34.3 % (32.4-45.2); HEMOGLOBIN 11.3 GM/dL (10.7-15.3); MCH 31.3 pg (25.7-33.7); MEAN PLT VOLUME 9.8 fl (7.5-11.1); PLATELET COUNT 588 K/MM3 (134-434); RBC 3.61 M/mm3 (3.60-5.2); RDW 15.8 % (11.6-15.6); WHITE BLOOD COUNT 13.5 K/mm3 (4.0-10.0)
[2020-09-30] MEDS: AMINO ACIDS/PROTEIN HYDROLYS 30 ML LIQUID.PKT PO SCH (17:13)
[2020-10-01] MEDS: AMINO ACIDS/PROTEIN HYDROLYS 30 ML LIQUID.PKT PO SCH ×2 (08:17→18:33)
[2020-10-01 08:23] LABS: BASO % 0.7 % (0-2.0); EOS % 2.2 % (0-4.5); HEMATOCRIT 36.1 % (32.4-45.2); LYMPH % 21.3 % (8-40); MCH 31.2 pg (25.7-33.7); MCHC 33.3 g/dl (32.0-36.0); MEAN CELL VOLUME 93.6 fl (80-96); MEAN PLT VOLUME 8.9 fl (7.5-11.1); MONO % 5.7 % (3.8-10.2); NEUT % 70.1 % (42.8-82.8); PLATELET COUNT 629 K/MM3 (134-434); RBC 3.85 M/mm3 (3.60-5.2); RDW 15.4 % (11.6-15.6); WHITE BLOOD COUNT 13.5 K/mm3 (4.0-10.0)
[2020-10-01 08:26] LABS: INR 1.3 (0.83-1.09); PROTHROMBIN TIME (PATIENT) 15.9 SEC (9.7-13.0)
[2020-10-01 08:28] LABS: ACTIVATED PTT 28.6 SECONDS (25.2-36.5)
[2020-10-01 08:39] LABS: POTASSIUM 4.4 mmol/L (3.5-5.1)
[2020-10-01 08:43] LABS: ALBUMIN 2.8 g/dl (3.4-5.0); BLOOD UREA NITROGEN 18.5 mg/dL (7-18)
[2020-10-01 08:44] LABS: CALCIUM 9.3 mg/dL (8.5-10.1); MAGNESIUM 2.1 mg/dL (1.8-2.4)
[2020-10-01 08:46] LABS: PHOSPHOROUS 6.2 mg/dL (2.5-4.9)
[2020-10-01 08:48] LABS: BILIRUBIN,TOTAL 0.7 mg/dL (0.2-1); TOT PROT 7.1 g/dl (6.4-8.2)
[2020-10-01] MEDS ORDERED: PT OWN MED DRAWER 7, Y5N ONE (09:18)
[2020-10-01] MEDS: OMEGA-3 ACID ETHYL ESTERS (FATTY-ACIDS) 1 GM CAPSULE (FP) PO SCH (09:25)
[2020-10-01] MEDS: APIXABAN 5 MG TABLET PO SCH ×2 (09:26→21:07)
[2020-10-01] MEDS: FAMOTIDINE 20 MG TABLET PO SCH (09:26)
[2020-10-01] MEDS: CHOLECALCIFEROL (VIT D3) 5000 UNITS (125 MCG) CAP PO SCH (09:27)
[2020-10-01] MEDS: VITAMIN B COMPLEX W/C COMBO TABLET (FP) PO SCH (09:27)
[2020-10-01] MEDS: POLYETHYLENE GLYCOL 3350 119 GM BTL PO SCH (09:28)
[2020-10-01] MEDS ORDERED: ONDANSETRON 4 MG/2 ML VIAL IVPB PRN (12:11)
[2020-10-01] MEDS ORDERED: ACETAMINOPHEN 325 MG TABLET (FP) PO PRN (12:11)
[2020-10-01] MEDS ORDERED: BENZOCAINE/MENTH/CETYLPYRD CL 1 EACH LOZENGE MM PRN (12:11)
[2020-10-01] MEDS: BACITRACIN/POLYMYXIN B SULFATE 15 GM TUBE TP SCH (15:21)
[2020-10-02] MEDS: AMINO ACIDS/PROTEIN HYDROLYS 30 ML LIQUID.PKT PO SCH ×2 (08:34→16:47)
[2020-10-02 09:05] LABS: BASO % 0.4 % (0-2.0); HEMATOCRIT 35.5 % (32.4-45.2); HEMOGLOBIN 11.9 GM/dL (10.7-15.3); LYMPH % 15.7 % (8-40); MCH 31.8 pg (25.7-33.7); MCHC 33.6 g/dl (32.0-36.0); MEAN CELL VOLUME 94.4 fl (80-96); MEAN PLT VOLUME 9.3 fl (7.5-11.1); MONO % 6.9 % (3.8-10.2); PLATELET COUNT 642 K/MM3 (134-434); RBC 3.76 M/mm3 (3.60-5.2); RDW 15.5 % (11.6-15.6); WHITE BLOOD COUNT 12.7 K/mm3 (4.0-10.0)
[2020-10-02] MEDS ORDERED: PT OWN MED DRAWER 7, Y5N ONE (09:08)
[2020-10-02 09:17] LABS: POTASSIUM 4.1 mmol/L (3.5-5.1)
[2020-10-02 09:24] LABS: ALBUMIN 2.5 g/dl (3.4-5.0); BLOOD UREA NITROGEN 26.3 mg/dL (7-18); CALCIUM 8.9 mg/dL (8.5-10.1); MAGNESIUM 2.1 mg/dL (1.8-2.4)
[2020-10-02 09:27] LABS: BILIRUBIN,TOTAL 0.6 mg/dL (0.2-1); PHOSPHOROUS 5.2 mg/dL (2.5-4.9); TOT PROT 6.7 g/dl (6.4-8.2)
[2020-10-02] MEDS: APIXABAN 5 MG TABLET PO SCH ×2 (09:50→21:39)
[2020-10-02] MEDS ORDERED: VITAMIN B COMPLEX W/C COMBO TABLET (FP) PO SCH (10:00)
[2020-10-02] MEDS ORDERED: OMEGA-3 ACID ETHYL ESTERS (FATTY-ACIDS) 1 GM CAPSULE (FP) PO SCH (10:00)
[2020-10-02] MEDS ORDERED: CHOLECALCIFEROL (VIT D3) 5000 UNITS (125 MCG) CAP PO SCH (10:00)
[2020-10-02] MEDS ORDERED: BACITRACIN/POLYMYXIN B SULFATE 15 GM TUBE TP SCH (10:00)
[2020-10-02] MEDS ORDERED: FAMOTIDINE 20 MG TABLET PO SCH (10:00)
[2020-10-02] MEDS ORDERED: POLYETHYLENE GLYCOL 3350 119 GM BTL PO SCH (10:00)
[2020-10-02] MEDS ORDERED: METOPROLOL TARTRATE 5 MG/5 ML VIAL IVPB PRN (10:47)
[2020-10-02] MEDS ORDERED: BENZOCAINE/MENTH/CETYLPYRD CL 1 EACH LOZENGE MM PRN (13:40)
[2020-10-02] MEDS ORDERED: ACETAMINOPHEN 325 MG TABLET (FP) PO PRN (13:40)
[2020-10-02] MEDS ORDERED: ONDANSETRON 4 MG/2 ML VIAL IVPB PRN (13:40)
[2020-10-02] MEDS: METOPROLOL TARTRATE 5 MG/5 ML VIAL IVPB PRN (16:47)
[2020-10-02] MEDS: OMEGA-3 ACID ETHYL ESTERS (FATTY-ACIDS) 1 GM CAPSULE (FP) PO SCH (21:39)
[2020-10-03 08:52] LABS: INR 1.6 (0.83-1.09); PROTHROMBIN TIME (PATIENT) 19.4 SEC (9.7-13.0)
[2020-10-03 08:53] LABS: BASO % 0.5 % (0-2.0); EOS % 1.6 % (0-4.5); HEMATOCRIT 34.6 % (32.4-45.2); HEMOGLOBIN 11.4 GM/dL (10.7-15.3); LYMPH % 19.1 % (8-40); MCH 31.2 pg (25.7-33.7); MCHC 32.9 g/dl (32.0-36.0); MEAN CELL VOLUME 94.9 fl (80-96); MEAN PLT VOLUME 9.6 fl (7.5-11.1); MONO % 7.6 % (3.8-10.2); NEUT % 71.2 % (42.8-82.8); PLATELET COUNT 616 K/MM3 (134-434); RBC 3.65 M/mm3 (3.60-5.2); RDW 15.6 % (11.6-15.6); WHITE BLOOD COUNT 14.5 K/mm3 (4.0-10.0)
[2020-10-03 09:06] LABS: POTASSIUM 4.1 mmol/L (3.5-5.1)
[2020-10-03 09:13] LABS: CALCIUM 9.1 mg/dL (8.5-10.1)
[2020-10-03 09:14] LABS: ALBUMIN 2.5 g/dl (3.4-5.0); BLOOD UREA NITROGEN 25.5 mg/dL (7-18); MAGNESIUM 2.1 mg/dL (1.8-2.4)
[2020-10-03] MEDS: AMINO ACIDS/PROTEIN HYDROLYS 30 ML LIQUID.PKT PO SCH ×2 (09:15→17:01)
[2020-10-03] MEDS: VITAMIN B COMPLEX W/C COMBO TABLET (FP) PO SCH ×2 (09:15→09:22)
[2020-10-03] MEDS: OMEGA-3 ACID ETHYL ESTERS (FATTY-ACIDS) 1 GM CAPSULE (FP) PO SCH ×2 (09:15→21:55)
[2020-10-03] MEDS: FAMOTIDINE 20 MG TABLET PO SCH (09:16)
[2020-10-03] MEDS: APIXABAN 5 MG TABLET PO SCH (09:16)
[2020-10-03 09:17] LABS: PHOSPHOROUS 3.6 mg/dL (2.5-4.9)
[2020-10-03 09:18] LABS: BILIRUBIN,TOTAL 0.8 mg/dL (0.2-1); TOT PROT 6.7 g/dl (6.4-8.2)
[2020-10-03] MEDS: POLYETHYLENE GLYCOL 3350 119 GM BTL PO SCH (09:22)
[2020-10-03] MEDS ORDERED: PT OWN MED DRAWER 7, Y5N ONE (10:21)
[2020-10-03] MEDS: CHOLECALCIFEROL (VIT D3) 5000 UNITS (125 MCG) CAP PO SCH (10:22)
[2020-10-03] MEDS: BACITRACIN/POLYMYXIN B SULFATE 15 GM TUBE TP SCH (10:22)
[2020-10-04 07:42] LABS: BASO % 0.5 % (0-2.0); EOS % 0.4 % (0-4.5); HEMATOCRIT 34.6 % (32.4-45.2); HEMOGLOBIN 11.6 GM/dL (10.7-15.3); LYMPH % 11.8 % (8-40); MCH 31.5 pg (25.7-33.7); MCHC 33.6 g/dl (32.0-36.0); MEAN CELL VOLUME 93.7 fl (80-96); MEAN PLT VOLUME 9.1 fl (7.5-11.1); MONO % 8.8 % (3.8-10.2); NEUT % 78.5 % (42.8-82.8); PLATELET COUNT 606 K/MM3 (134-434); RBC 3.69 M/mm3 (3.60-5.2); RDW 15.4 % (11.6-15.6); WHITE BLOOD COUNT 18.5 K/mm3 (4.0-10.0)
[2020-10-04 07:56] LABS: POTASSIUM 4.2 mmol/L (3.5-5.1)
[2020-10-04 07:57] LABS: BLOOD UREA NITROGEN 21.3 mg/dL (7-18); CALCIUM 8.6 mg/dL (8.5-10.1)
[2020-10-04 07:58] LABS: ALBUMIN 2.4 g/dl (3.4-5.0)
[2020-10-04 08:01] LABS: CREATININE 0.9 mg/dL (0.55-1.3)
[2020-10-04 08:02] LABS: BILIRUBIN,TOTAL 1.1 mg/dL (0.2-1); TOT PROT 6.4 g/dl (6.4-8.2)
[2020-10-04] MEDS ORDERED: DEXTROSE 5%-WATER - 50 ML IVPB ONE ×2 (09:44→17:05)
[2020-10-04] MEDS ORDERED: PIPERACILLIN/TAZOBACTAM 3.375 GM VIAL IVPB ONE ×2 (09:44→17:05)
[2020-10-04] MEDS ORDERED: HEPARIN NA (PORCINE) 5,000 UNITS/ML 1ML VIAL IVPUSH PRN ×2 (09:50)
[2020-10-04] MEDS ORDERED: HEPARIN SOD,PORK IN 0.45% NACL 25,000 UNIT/500 ML INFUS.BAG IVPB SCH (10:00)
[2020-10-04] MEDS ORDERED: PIPERACILLIN/TAZOB 3.375 GM 3.375 GM in DEXTROSE 5%-WATER - 50 ML IVPB SCH (10:00)
[2020-10-04] MEDS: OMEGA-3 ACID ETHYL ESTERS (FATTY-ACIDS) 1 GM CAPSULE (FP) PO SCH ×2 (10:31→22:51)
[2020-10-04] MEDS: BACITRACIN/POLYMYXIN B SULFATE 15 GM TUBE TP SCH (10:31)
[2020-10-04] MEDS: AMINO ACIDS/PROTEIN HYDROLYS 30 ML LIQUID.PKT PO SCH ×2 (10:31→17:31)
[2020-10-04] MEDS: CHOLECALCIFEROL (VIT D3) 5000 UNITS (125 MCG) CAP PO SCH (10:32)
[2020-10-04] MEDS: VITAMIN B COMPLEX W/C COMBO TABLET (FP) PO SCH (10:32)
[2020-10-04] MEDS: FAMOTIDINE 20 MG TABLET PO SCH (10:32)
[2020-10-04] MEDS: PIPERACILLIN/TAZOB 3.375 GM 3.375 GM in DEXTROSE 5%-WATER - 50 ML IVPB SCH ×2 (10:35→17:30)
[2020-10-04] MEDS: METOPROLOL TARTRATE 5 MG/5 ML VIAL IVPB PRN ×2 (13:37→20:56)
[2020-10-04] MEDS: POLYETHYLENE GLYCOL 3350 119 GM BTL PO SCH (17:31)
[2020-10-04 20:56] VITALS: BP 126/68
[2020-10-05] MEDS ORDERED: PIPERACILLIN/TAZOB 3.375 GM 3.375 GM in DEXTROSE 5%-WATER - 50 ML IVPB SCH (02:00)
[2020-10-05 02:20] VITALS: PULSE 132; TEMP 97.8
== END 2020-10-05 01:30 | disposition short-term general hospital (02) | DRG 418 ==
LOC: JER 07:24 → JERBED 13:23 → J5S 09-19 11:04 → J4W 09-23 13:05 → JICU 09-24 06:59 → J4W 09-27 22:07 → J8W 09-30 18:40 → J4W 10-02 13:22
PROVIDERS: ADMIT Internal Medicine
PROC: 0FT44ZZ Resection of Gallbladder, Percutaneous Endoscopic Approach (ICD-10-PCS; principal; 2020-09-19 14:15)
PROC: 30233N1 Transfusion of Nonautologous Red Blood Cells into Peripheral Vein, Percutaneous Approach (ICD-10-PCS; 2020-09-24)
DX: K80.12 Calculus of gallbladder with acute and chronic cholecystitis without obstruction (principal); K51.90 Ulcerative colitis, unspecified, without complications; D62 Acute posthemorrhagic anemia; K82.1 Hydrops of gallbladder; I97.191 Other postprocedural cardiac functional disturbances following other surgery; K91.870 Postprocedural hematoma of a digestive system organ or structure following a digestive system procedure; J90 Pleural effusion, not elsewhere classified; K56.7 Ileus, unspecified; Y83.9 Surgical procedure, unspecified as the cause of abnormal reaction of the patient, or of later complication, without mention of misadventure at the time of the procedure; I48.91 Unspecified atrial fibrillation; D72.829 Elevated white blood cell count, unspecified; R33.9 Retention of urine, unspecified; I10 Essential (primary) hypertension; E78.5 Hyperlipidemia, unspecified; R00.1 Bradycardia, unspecified
CPT/HCPCS: 36415; 36430; 36511; 71045-TC-FY; 71260-TC; 74174-TC; 74176-TC; 74177-TC; 76705-TC; 80048; 80053; 82550; 82607; 83605; 83690; 83735; 84100; 84484; 85025; 85027; 85610; 85730; 86850; 86900; 86901; 86922; 87040; 88304-TC; 90670; 93005; 93010; 93306-TC; 93970-TC; 94010; 94760; 97116-GP; 97161-GP; 99285-25; C9803; J0131; J1644; P9038; P9058; Q9967; U0003

== ENCOUNTER 2020-10-28 10:39 | Inpatient (IN) | payer OTHER, BC ==
[2020-10-28] MEDS ORDERED: METOPROLOL TARTRATE 5 MG/5 ML VIAL IVPUSH ONE ×3 (11:12→17:49)
[2020-10-28] MEDS ORDERED: METOPROLOL TARTRATE 5 MG/5 ML VIAL ONE ×3 (11:16→17:51)
[2020-10-28 12:25] LABS: BASO % 0.5 % (0-2.0); EOS % 0.9 % (0-4.5); HEMATOCRIT 33.1 % (32.4-45.2); LYMPH % 16.1 % (8-40); MCH 31.5 pg (25.7-33.7); MCHC 33.1 g/dl (32.0-36.0); MEAN CELL VOLUME 94.9 fl (80-96); MEAN PLT VOLUME 8.9 fl (7.5-11.1); MONO % 7.9 % (3.8-10.2); NEUT % 74.6 % (42.8-82.8); PLATELET COUNT 579 K/MM3 (134-434); RBC 3.49 M/mm3 (3.60-5.2); WHITE BLOOD COUNT 9.3 K/mm3 (4.0-10.0)
[2020-10-28 12:30] LABS: INR 1.63 (0.83-1.09); PROTHROMBIN TIME (PATIENT) 19.8 SEC (9.7-13.0)
[2020-10-28 12:47] LABS: POTASSIUM 3.5 mmol/L (3.5-5.1)
[2020-10-28 12:51] LABS: ALBUMIN 2.1 g/dl (3.4-5.0); BLOOD UREA NITROGEN 13.9 mg/dL (7-18); CALCIUM 8.8 mg/dL (8.5-10.1)
[2020-10-28 12:54] LABS: CREATININE 0.7 mg/dL (0.55-1.3)
[2020-10-28 12:56] LABS: BILIRUBIN,TOTAL 0.8 mg/dL (0.2-1); TOT PROT 7.2 g/dl (6.4-8.2)
[2020-10-28 15:33] LABS: EPI CELLS 19 /uL (0-25.1); HYALINE CASTS 0 /uL (0-3.1); PH,URINE 6.5 (5.0-8.0); URINE APPEARANCE CLEAR; URINE BACTERIA 108 /uL (0-1359); URINE BILIRUBIN NEGATIVE (NEGATIVE); URINE COLOR YELLOW; URINE GLUCOSE (UA) NEGATIVE (NEGATIVE); URINE KETONE NEGATIVE (NEGATIVE); URINE LEUK ESTERASE NEGATIVE (NEGATIVE); URINE NITRITE NEGATIVE (NEGATIVE); URINE PROTEIN 2+ (NEGATIVE); URINE RBC 32 /uL (0-23.9); URINE WBC 19 /uL (0-25.8)
[2020-10-28] MEDS ORDERED: dilTIAZem HCL 30 MG TABLET ONE (18:30)
[2020-10-28] MEDS ORDERED: dilTIAZem HCL 60 MG TABLET ONE (18:30)
[2020-10-28 18:57] LABS: BF WBC & OTHER NUCLEATED CELLS 432 /mm3
[2020-10-28 20:17] LABS: BODY FLUID MACROPHAGES 24 %; BODY FLUID MESOTHELIAL 1 %; BODY FLUID MONOCYTE 10 %
[2020-10-28] MEDS ORDERED: APIXABAN 5 MG TABLET ONE (22:24)
[2020-10-28] MEDS: APIXABAN 5 MG TABLET PO SCH (22:37)
[2020-10-29] MEDS ORDERED: dilTIAZem HCL 30 MG TABLET ONE (00:23)
[2020-10-29] MEDS ORDERED: dilTIAZem HCL 60 MG TABLET ONE (00:23)
[2020-10-29 07:33] LABS: BASO % 0.5 % (0-2.0); EOS % 1.3 % (0-4.5); HEMATOCRIT 32.1 % (32.4-45.2); HEMOGLOBIN 10.7 GM/dL (10.7-15.3); MCH 31.5 pg (25.7-33.7); MCHC 33.5 g/dl (32.0-36.0); MEAN CELL VOLUME 94.2 fl (80-96); MEAN PLT VOLUME 8.5 fl (7.5-11.1); MONO % 6.4 % (3.8-10.2); NEUT % 69.8 % (42.8-82.8); PLATELET COUNT 531 K/MM3 (134-434); RBC 3.41 M/mm3 (3.60-5.2); RDW 16.6 % (11.6-15.6); WHITE BLOOD COUNT 10.3 K/mm3 (4.0-10.0)
[2020-10-29 07:51] LABS: POTASSIUM 3.1 mmol/L (3.5-5.1)
[2020-10-29 08:00] LABS: ALBUMIN 1.7 g/dl (3.4-5.0); CALCIUM 7.7 mg/dL (8.5-10.1)
[2020-10-29 08:01] LABS: BLOOD UREA NITROGEN 10.7 mg/dL (7-18); MAGNESIUM 1.8 mg/dL (1.8-2.4)
[2020-10-29 08:02] LABS: BILIRUBIN,TOTAL 0.6 mg/dL (0.2-1)
[2020-10-29 08:03] LABS: TOT PROT 5.5 g/dl (6.4-8.2)
[2020-10-29 08:04] LABS: CREATININE 0.7 mg/dL (0.55-1.3); PHOSPHOROUS 4.4 mg/dL (2.5-4.9)
[2020-10-29] MEDS ORDERED: POTASSIUM CHLORIDE TABS 20 MEQ TABLET.ER (FP) PO ONE (08:55)
[2020-10-29] MEDS ORDERED: MAGNESIUM OXIDE 400 MG TABLET (FP) PO ONE (08:55)
[2020-10-29] MEDS ORDERED: PATIENT'S OWN MEDICATION (NON-FORMULARY) (Glucosa Su 2kcl/Chondroitin Su [Glucosamine & Ch PO SCH (10:00)
[2020-10-29] MEDS ORDERED: LUTEIN 10 MG PO SCH (10:00)
[2020-10-29] MEDS ORDERED: [UNRECOGNIZED DRUG - OTHER] PO SCH (10:00)
[2020-10-29] MEDS ORDERED: UBIDECARENONE 10 MG PO SCH (10:00)
[2020-10-29] MEDS ORDERED: PATIENT'S OWN MEDICATION (NON-FORMULARY) (Biotin [Biotin] 1 MG Capsule) PO SCH (10:00)
[2020-10-29] MEDS ORDERED: PATIENT'S OWN MEDICATION (NON-FORMULARY) (Zinc Gluconate [Zinc] 50 MG Tablet) PO SCH (10:00)
[2020-10-29] MEDS ORDERED: CALCIUM PO SCH (10:00)
[2020-10-29] MEDS ORDERED: PATIENT'S OWN MEDICATION (NON-FORMULARY) (Vitamin B Complex [Vitamin B Complex] 1 EACH Cap PO SCH (10:00)
[2020-10-29] MEDS ORDERED: MINERALS PO SCH (10:00)
[2020-10-29] MEDS ORDERED: VITS D3 PO SCH (10:00)
[2020-10-29] MEDS ORDERED: K2 PO SCH (10:00)
[2020-10-29] MEDS ORDERED: MULTIVITAMIN PO SCH (10:00)
[2020-10-29] MEDS ORDERED: PATIENT'S OWN MEDICATION (NON-FORMULARY) (Ascorbate Calcium [Vitamin C] 500 MG Tablet) PO SCH (10:00)
[2020-10-29] MEDS: VITAMIN B COMPLEX W/C COMBO TABLET (FP) PO SCH (10:01)
[2020-10-29] MEDS: ASCORBIC ACID 500 MG TABLET (FP) PO SCH (10:01)
[2020-10-29] MEDS: OMEGA-3 ACID ETHYL ESTERS (FATTY-ACIDS) 1 GM CAPSULE (FP) PO SCH (10:01)
[2020-10-29] MEDS: MULTIVITAMINS (DAILY MVI) TABLET (FP) PO SCH ×2 (10:01→10:05)
[2020-10-29] MEDS: APIXABAN 5 MG TABLET PO SCH ×2 (10:02→22:08)
[2020-10-29] MEDS: ZINC SULFATE 220 MG CAPSULE (FP) PO SCH (10:02)
[2020-10-29] MEDS: CHOLECALCIFEROL (VIT D3) 5000 UNITS (125 MCG) CAP PO SCH (10:04)
[2020-10-29] MEDS ORDERED: DEXTROSE 5%-WATER - 50 ML IVPB ONE (12:04)
[2020-10-29] MEDS ORDERED: cefTRIAXone SODIUM 1 GM VIAL ONE (12:04)
[2020-10-29] MEDS: CEFTRIAXONE 1 GM in DEXTROSE 5%-WATER - 50 ML IVPB SCH (14:05)
[2020-10-30 08:03] LABS: BASO % 0.3 % (0-2.0); EOS % 2.7 % (0-4.5); HEMATOCRIT 30.4 % (32.4-45.2); HEMOGLOBIN 10.1 GM/dL (10.7-15.3); LYMPH % 20.4 % (8-40); MCH 31.6 pg (25.7-33.7); MCHC 33.1 g/dl (32.0-36.0); MEAN CELL VOLUME 95.3 fl (80-96); MEAN PLT VOLUME 8.7 fl (7.5-11.1); MONO % 8.6 % (3.8-10.2); PLATELET COUNT 505 K/MM3 (134-434); RBC 3.19 M/mm3 (3.60-5.2); RDW 16.9 % (11.6-15.6); WHITE BLOOD COUNT 9.8 K/mm3 (4.0-10.0)
[2020-10-30 08:32] LABS: POTASSIUM 3.6 mmol/L (3.5-5.1)
[2020-10-30 09:20] LABS: ALBUMIN 1.7 g/dl (3.4-5.0); CALCIUM 7.8 mg/dL (8.5-10.1)
[2020-10-30 09:21] LABS: BLOOD UREA NITROGEN 15.7 mg/dL (7-18); MAGNESIUM 1.8 mg/dL (1.8-2.4)
[2020-10-30 09:24] LABS: CREATININE 0.7 mg/dL (0.55-1.3)
[2020-10-30 09:25] LABS: BILIRUBIN,TOTAL 0.5 mg/dL (0.2-1); TOT PROT 5.6 g/dl (6.4-8.2)
[2020-10-30] MEDS ORDERED: DEXTROSE 5%-WATER - 50 ML IVPB ONE (09:48)
[2020-10-30] MEDS ORDERED: cefTRIAXone SODIUM 1 GM VIAL ONE (09:48)
[2020-10-30 12:07] LABS: BODY FLUID ALBUMIN 1.9 g/dL (Not Estab.)
[2020-10-30] MEDS: OMEGA-3 ACID ETHYL ESTERS (FATTY-ACIDS) 1 GM CAPSULE (FP) PO SCH (12:17)
[2020-10-30] MEDS: APIXABAN 5 MG TABLET PO SCH ×2 (12:17→21:45)
[2020-10-30] MEDS: MULTIVITAMINS (DAILY MVI) TABLET (FP) PO SCH (12:17)
[2020-10-30] MEDS: CEFTRIAXONE 1 GM in DEXTROSE 5%-WATER - 50 ML IVPB SCH (12:17)
[2020-10-30] MEDS: ZINC SULFATE 220 MG CAPSULE (FP) PO SCH (12:17)
[2020-10-30] MEDS: VITAMIN B COMPLEX W/C COMBO TABLET (FP) PO SCH (12:18)
[2020-10-30] MEDS: CHOLECALCIFEROL (VIT D3) 5000 UNITS (125 MCG) CAP PO SCH (12:18)
[2020-10-30] MEDS: ASCORBIC ACID 500 MG TABLET (FP) PO SCH (12:18)
[2020-10-31 07:47] LABS: BASO % 0.3 % (0-2.0); EOS % 3.4 % (0-4.5); HEMATOCRIT 30.7 % (32.4-45.2); HEMOGLOBIN 10.3 GM/dL (10.7-15.3); LYMPH % 20.5 % (8-40); MCH 31.8 pg (25.7-33.7); MCHC 33.7 g/dl (32.0-36.0); MEAN CELL VOLUME 94.5 fl (80-96); MEAN PLT VOLUME 8.3 fl (7.5-11.1); MONO % 7.4 % (3.8-10.2); NEUT % 68.4 % (42.8-82.8); PLATELET COUNT 490 K/MM3 (134-434); RBC 3.25 M/mm3 (3.60-5.2); RDW 17.1 % (11.6-15.6); WHITE BLOOD COUNT 8.8 K/mm3 (4.0-10.0)
[2020-10-31 08:14] LABS: POTASSIUM 3.8 mmol/L (3.5-5.1)
[2020-10-31 08:26] LABS: ALBUMIN 1.6 g/dl (3.4-5.0); BLOOD UREA NITROGEN 12.9 mg/dL (7-18); CREATININE 0.7 mg/dL (0.55-1.3); MAGNESIUM 1.9 mg/dL (1.8-2.4)
[2020-10-31 08:27] LABS: BILIRUBIN,TOTAL 0.4 mg/dL (0.2-1)
[2020-10-31 08:28] LABS: TOT PROT 5.5 g/dl (6.4-8.2)
[2020-10-31] MEDS ORDERED: cefTRIAXone SODIUM 1 GM VIAL ONE (09:56)
[2020-10-31] MEDS ORDERED: PT OWN MED DRAWER 7, Y5N ONE (09:56)
[2020-10-31] MEDS ORDERED: DEXTROSE 5%-WATER - 50 ML IVPB ONE (09:56)
[2020-10-31] MEDS: CEFTRIAXONE 1 GM in DEXTROSE 5%-WATER - 50 ML IVPB SCH (10:25)
[2020-10-31] MEDS: MULTIVITAMINS (DAILY MVI) TABLET (FP) PO SCH (10:25)
[2020-10-31] MEDS: OMEGA-3 ACID ETHYL ESTERS (FATTY-ACIDS) 1 GM CAPSULE (FP) PO SCH (10:26)
[2020-10-31] MEDS: ZINC SULFATE 220 MG CAPSULE (FP) PO SCH (10:26)
[2020-10-31] MEDS: ASCORBIC ACID 500 MG TABLET (FP) PO SCH (10:26)
[2020-10-31] MEDS: VITAMIN B COMPLEX W/C COMBO TABLET (FP) PO SCH ×2 (10:26→10:46)
[2020-10-31] MEDS: APIXABAN 5 MG TABLET PO SCH ×2 (10:26→22:37)
[2020-10-31] MEDS: CHOLECALCIFEROL (VIT D3) 5000 UNITS (125 MCG) CAP PO SCH (10:26)
[2020-11-01] MEDS ORDERED: cefTRIAXone SODIUM 1 GM VIAL ONE (08:11)
[2020-11-01] MEDS ORDERED: DEXTROSE 5%-WATER - 50 ML IVPB ONE (08:12)
[2020-11-01 08:18] LABS: BASO % 0.3 % (0-2.0); EOS % 3.2 % (0-4.5); HEMATOCRIT 32.9 % (32.4-45.2); HEMOGLOBIN 10.9 GM/dL (10.7-15.3); MCH 31.7 pg (25.7-33.7); MCHC 33.2 g/dl (32.0-36.0); MEAN CELL VOLUME 95.4 fl (80-96); MEAN PLT VOLUME 8.6 fl (7.5-11.1); MONO % 7.5 % (3.8-10.2); PLATELET COUNT 494 K/MM3 (134-434); RBC 3.44 M/mm3 (3.60-5.2); RDW 16.9 % (11.6-15.6); WHITE BLOOD COUNT 9.4 K/mm3 (4.0-10.0)
[2020-11-01 08:43] LABS: POTASSIUM 4.1 mmol/L (3.5-5.1)
[2020-11-01 08:47] LABS: ALBUMIN 1.7 g/dl (3.4-5.0); BLOOD UREA NITROGEN 13.5 mg/dL (7-18); MAGNESIUM 1.9 mg/dL (1.8-2.4)
[2020-11-01 08:50] LABS: CREATININE 0.7 mg/dL (0.55-1.3)
[2020-11-01 08:51] LABS: BILIRUBIN,TOTAL 0.4 mg/dL (0.2-1)
[2020-11-01 08:52] LABS: TOT PROT 6.1 g/dl (6.4-8.2)
[2020-11-01] MEDS: MULTIVITAMINS (DAILY MVI) TABLET (FP) PO SCH (09:32)
[2020-11-01] MEDS: OMEGA-3 ACID ETHYL ESTERS (FATTY-ACIDS) 1 GM CAPSULE (FP) PO SCH (09:32)
[2020-11-01] MEDS: CEFTRIAXONE 1 GM in DEXTROSE 5%-WATER - 50 ML IVPB SCH (09:32)
[2020-11-01] MEDS: ASCORBIC ACID 500 MG TABLET (FP) PO SCH (09:32)
[2020-11-01] MEDS: ZINC SULFATE 220 MG CAPSULE (FP) PO SCH (09:32)
[2020-11-01] MEDS: APIXABAN 5 MG TABLET PO SCH ×2 (09:32→21:07)
[2020-11-01] MEDS ORDERED: PT OWN MED DRAWER 7, Y5N ONE (09:35)
[2020-11-01] MEDS: CHOLECALCIFEROL (VIT D3) 5000 UNITS (125 MCG) CAP PO SCH (09:35)
[2020-11-01] MEDS: VITAMIN B COMPLEX W/C COMBO TABLET (FP) PO SCH (09:40)
[2020-11-01] MEDS ORDERED: METOPROLOL TARTRATE 5 MG/5 ML VIAL IVPUSH PRN (11:26)
[2020-11-01] MEDS ORDERED: guaiFENesin/CODEINE 5 ML UNIT-DOSE CUPS PO PRN (12:31)
[2020-11-02] MEDS ORDERED: cefTRIAXone SODIUM 1 GM VIAL ONE (09:04)
[2020-11-02] MEDS ORDERED: DEXTROSE 5%-WATER - 50 ML IVPB ONE (09:04)
[2020-11-02] MEDS ORDERED: PT OWN MED DRAWER 7, Y5N ONE (09:04)
[2020-11-02] MEDS: CEFTRIAXONE 1 GM in DEXTROSE 5%-WATER - 50 ML IVPB SCH (10:03)
[2020-11-02] MEDS: ASCORBIC ACID 500 MG TABLET (FP) PO SCH (10:03)
[2020-11-02] MEDS: MULTIVITAMINS (DAILY MVI) TABLET (FP) PO SCH (10:04)
[2020-11-02] MEDS: APIXABAN 5 MG TABLET PO SCH ×2 (10:04→21:59)
[2020-11-02] MEDS: OMEGA-3 ACID ETHYL ESTERS (FATTY-ACIDS) 1 GM CAPSULE (FP) PO SCH (10:04)
[2020-11-02] MEDS: ZINC SULFATE 220 MG CAPSULE (FP) PO SCH (10:04)
[2020-11-02] MEDS: VITAMIN B COMPLEX W/C COMBO TABLET (FP) PO SCH ×2 (10:04→10:13)
[2020-11-02] MEDS: CHOLECALCIFEROL (VIT D3) 5000 UNITS (125 MCG) CAP PO SCH (10:05)
[2020-11-03 07:30] LABS: BASO % 0.6 % (0-2.0); HEMATOCRIT 34.6 % (32.4-45.2); HEMOGLOBIN 11.2 GM/dL (10.7-15.3); LYMPH % 26.3 % (8-40); MCH 30.7 pg (25.7-33.7); MCHC 32.4 g/dl (32.0-36.0); MEAN CELL VOLUME 94.8 fl (80-96); MEAN PLT VOLUME 8.8 fl (7.5-11.1); MONO % 6.7 % (3.8-10.2); NEUT % 63.4 % (42.8-82.8); PLATELET COUNT 480 K/MM3 (134-434); RBC 3.65 M/mm3 (3.60-5.2); RDW 16.7 % (11.6-15.6); WHITE BLOOD COUNT 9.7 K/mm3 (4.0-10.0)
[2020-11-03 07:59] LABS: POTASSIUM 4.5 mmol/L (3.5-5.1)
[2020-11-03 08:50] LABS: ALBUMIN 1.8 g/dl (3.4-5.0); BLOOD UREA NITROGEN 18.7 mg/dL (7-18); CALCIUM 8.5 mg/dL (8.5-10.1); MAGNESIUM 2.1 mg/dL (1.8-2.4)
[2020-11-03 08:53] LABS: CREATININE 0.7 mg/dL (0.55-1.3)
[2020-11-03 08:54] LABS: BILIRUBIN,TOTAL 0.5 mg/dL (0.2-1)
[2020-11-03 08:55] LABS: TOT PROT 6.3 g/dl (6.4-8.2)
[2020-11-03] MEDS: ZINC SULFATE 220 MG CAPSULE (FP) PO SCH (09:22)
[2020-11-03] MEDS: OMEGA-3 ACID ETHYL ESTERS (FATTY-ACIDS) 1 GM CAPSULE (FP) PO SCH (09:22)
[2020-11-03] MEDS: ASCORBIC ACID 500 MG TABLET (FP) PO SCH (09:22)
[2020-11-03] MEDS: MULTIVITAMINS (DAILY MVI) TABLET (FP) PO SCH (09:23)
[2020-11-03] MEDS: CHOLECALCIFEROL (VIT D3) 5000 UNITS (125 MCG) CAP PO SCH (09:23)
[2020-11-03] MEDS: VITAMIN B COMPLEX W/C COMBO TABLET (FP) PO SCH (09:23)
[2020-11-03] MEDS: APIXABAN 5 MG TABLET PO SCH ×2 (09:23→22:19)
[2020-11-03] MEDS ORDERED: MORPHINE SULFATE 2 MG/ML VIAL IVPUSH ONE (22:04)
[2020-11-04 09:30] LABS: BASO % 0.5 % (0-2.0); EOS % 2.1 % (0-4.5); HEMATOCRIT 33.6 % (32.4-45.2); LYMPH % 21.8 % (8-40); MCH 31.4 pg (25.7-33.7); MCHC 32.8 g/dl (32.0-36.0); MEAN CELL VOLUME 95.6 fl (80-96); MEAN PLT VOLUME 8.6 fl (7.5-11.1); MONO % 5.9 % (3.8-10.2); NEUT % 69.7 % (42.8-82.8); PLATELET COUNT 459 K/MM3 (134-434); RBC 3.52 M/mm3 (3.60-5.2); RDW 16.7 % (11.6-15.6); WHITE BLOOD COUNT 9.2 K/mm3 (4.0-10.0)
[2020-11-04 09:53] LABS: POTASSIUM 4.7 mmol/L (3.5-5.1)
[2020-11-04 10:15] LABS: BLOOD UREA NITROGEN 14.7 mg/dL (7-18)
[2020-11-04 10:19] LABS: CREATININE 0.7 mg/dL (0.55-1.3); TOT PROT 6.1 g/dl (6.4-8.2)
[2020-11-04 10:20] LABS: ALBUMIN 1.8 g/dl (3.4-5.0); BILIRUBIN,TOTAL 0.2 mg/dL (0.2-1)
[2020-11-04 10:24] LABS: MAGNESIUM 2.1 mg/dL (1.8-2.4)
[2020-11-04 10:26] LABS: CALCIUM 8.5 mg/dL (8.5-10.1)
[2020-11-04 10:44] VITALS: BMI 23.2
[2020-11-04] MEDS: VITAMIN B COMPLEX W/C COMBO TABLET (FP) PO SCH (10:50)
[2020-11-04] MEDS: OMEGA-3 ACID ETHYL ESTERS (FATTY-ACIDS) 1 GM CAPSULE (FP) PO SCH (10:50)
[2020-11-04] MEDS: ZINC SULFATE 220 MG CAPSULE (FP) PO SCH (10:51)
[2020-11-04] MEDS: MULTIVITAMINS (DAILY MVI) TABLET (FP) PO SCH (10:51)
[2020-11-04] MEDS: APIXABAN 5 MG TABLET PO SCH ×2 (10:51→21:12)
[2020-11-04] MEDS: ASCORBIC ACID 500 MG TABLET (FP) PO SCH (10:51)
[2020-11-04] MEDS: CHOLECALCIFEROL (VIT D3) 5000 UNITS (125 MCG) CAP PO SCH (10:51)
[2020-11-05 07:28] LABS: BASO % 0.5 % (0-2.0); EOS % 1.9 % (0-4.5); HEMATOCRIT 34.8 % (32.4-45.2); HEMOGLOBIN 11.3 GM/dL (10.7-15.3); LYMPH % 17.2 % (8-40); MCH 31.1 pg (25.7-33.7); MCHC 32.6 g/dl (32.0-36.0); MEAN CELL VOLUME 95.5 fl (80-96); MEAN PLT VOLUME 8.3 fl (7.5-11.1); MONO % 6.2 % (3.8-10.2); NEUT % 74.2 % (42.8-82.8); PLATELET COUNT 456 K/MM3 (134-434); RBC 3.64 M/mm3 (3.60-5.2); RDW 16.9 % (11.6-15.6); WHITE BLOOD COUNT 9.3 K/mm3 (4.0-10.0)
[2020-11-05 07:47] LABS: POTASSIUM 4.1 mmol/L (3.5-5.1)
[2020-11-05 07:49] LABS: ALBUMIN 1.8 g/dl (3.4-5.0); BLOOD UREA NITROGEN 16.5 mg/dL (7-18); CALCIUM 8.5 mg/dL (8.5-10.1)
[2020-11-05 07:53] LABS: CREATININE 0.7 mg/dL (0.55-1.3)
[2020-11-05 07:54] LABS: BILIRUBIN,TOTAL 0.2 mg/dL (0.2-1)
[2020-11-05] MEDS: CHOLECALCIFEROL (VIT D3) 5000 UNITS (125 MCG) CAP PO SCH (09:49)
[2020-11-05] MEDS: ASCORBIC ACID 500 MG TABLET (FP) PO SCH (09:50)
[2020-11-05] MEDS: MULTIVITAMINS (DAILY MVI) TABLET (FP) PO SCH (09:50)
[2020-11-05] MEDS: ZINC SULFATE 220 MG CAPSULE (FP) PO SCH (09:50)
[2020-11-05] MEDS: OMEGA-3 ACID ETHYL ESTERS (FATTY-ACIDS) 1 GM CAPSULE (FP) PO SCH (09:50)
[2020-11-05] MEDS: VITAMIN B COMPLEX W/C COMBO TABLET (FP) PO SCH (09:50)
[2020-11-05] MEDS: APIXABAN 5 MG TABLET PO SCH ×2 (09:51→21:23)
[2020-11-05] MEDS ORDERED: ALTEPLASE 2 MG VIAL IX ONE (14:30)
[2020-11-05] MEDS ORDERED: ACETAMINOPHEN 325 MG TABLET (FP) PO PRN (21:28)
[2020-11-06] MEDS ORDERED: ALTEPLASE 2 MG VIAL IX ONE (09:00)
[2020-11-06] MEDS: ASCORBIC ACID 500 MG TABLET (FP) PO SCH (09:35)
[2020-11-06] MEDS: OMEGA-3 ACID ETHYL ESTERS (FATTY-ACIDS) 1 GM CAPSULE (FP) PO SCH (09:35)
[2020-11-06] MEDS: APIXABAN 5 MG TABLET PO SCH ×2 (09:36→22:30)
[2020-11-06] MEDS: ZINC SULFATE 220 MG CAPSULE (FP) PO SCH (09:36)
[2020-11-06] MEDS: VITAMIN B COMPLEX W/C COMBO TABLET (FP) PO SCH (09:36)
[2020-11-06] MEDS: CHOLECALCIFEROL (VIT D3) 5000 UNITS (125 MCG) CAP PO SCH (09:36)
[2020-11-06] MEDS: MULTIVITAMINS (DAILY MVI) TABLET (FP) PO SCH (09:36)
[2020-11-06] MEDS: methylPREDNISolone NA SUCC 125 MG/2 ML VIAL IVPUSH SCH ×2 (14:12→22:30)
[2020-11-07 08:46] LABS: BASO % 0.1 % (0-2.0); HEMATOCRIT 34.7 % (32.4-45.2); HEMOGLOBIN 11.4 GM/dL (10.7-15.3); LYMPH % 11.3 % (8-40); MCH 31.2 pg (25.7-33.7); MCHC 32.8 g/dl (32.0-36.0); MEAN CELL VOLUME 95.1 fl (80-96); MEAN PLT VOLUME 8.9 fl (7.5-11.1); MONO % 0.7 % (3.8-10.2); NEUT % 87.9 % (42.8-82.8); PLATELET COUNT 443 K/MM3 (134-434); RBC 3.65 M/mm3 (3.60-5.2); RDW 16.4 % (11.6-15.6); WHITE BLOOD COUNT 14.6 K/mm3 (4.0-10.0)
[2020-11-07 09:05] LABS: POTASSIUM 4.7 mmol/L (3.5-5.1)
[2020-11-07] MEDS ORDERED: PT OWN MED DRAWER 7, Y5N ONE (09:09)
[2020-11-07 09:13] LABS: BLOOD UREA NITROGEN 28.1 mg/dL (7-18); CREATININE 0.8 mg/dL (0.55-1.3)
[2020-11-07 09:14] LABS: BILIRUBIN,TOTAL 0.3 mg/dL (0.2-1); CALCIUM 8.5 mg/dL (8.5-10.1); TOT PROT 6.5 g/dl (6.4-8.2)
[2020-11-07 09:15] LABS: MAGNESIUM 2.3 mg/dL (1.8-2.4)
[2020-11-07] MEDS: MULTIVITAMINS (DAILY MVI) TABLET (FP) PO SCH (10:02)
[2020-11-07] MEDS: CHOLECALCIFEROL (VIT D3) 5000 UNITS (125 MCG) CAP PO SCH (10:02)
[2020-11-07] MEDS: ZINC SULFATE 220 MG CAPSULE (FP) PO SCH (10:02)
[2020-11-07] MEDS: ASCORBIC ACID 500 MG TABLET (FP) PO SCH (10:02)
[2020-11-07] MEDS: OMEGA-3 ACID ETHYL ESTERS (FATTY-ACIDS) 1 GM CAPSULE (FP) PO SCH (10:02)
[2020-11-07] MEDS: methylPREDNISolone NA SUCC 125 MG/2 ML VIAL IVPUSH SCH (10:03)
[2020-11-07] MEDS: VITAMIN B COMPLEX W/C COMBO TABLET (FP) PO SCH (10:03)
[2020-11-07] MEDS: APIXABAN 5 MG TABLET PO SCH ×2 (10:03→21:05)
[2020-11-07] MEDS ORDERED: ALTEPLASE 2 MG VIAL IX ONE (14:45)
[2020-11-07] MEDS: methylPREDNISolone NA SUCC 40 MG/1 ML VIAL IVPUSH SCH (21:05)
[2020-11-08] MEDS: dilTIAZem HCL 25 MG/5 ML - 5 ML VIAL IVPUSH PRN (00:35)
[2020-11-08 08:50] LABS: BASO % 0.2 % (0-2.0); HEMOGLOBIN 12.2 GM/dL (10.7-15.3); LYMPH % 5.9 % (8-40); MCH 31.5 pg (25.7-33.7); MEAN CELL VOLUME 95.5 fl (80-96); MEAN PLT VOLUME 9.1 fl (7.5-11.1); MONO % 1.1 % (3.8-10.2); NEUT % 92.8 % (42.8-82.8); PLATELET COUNT 482 K/MM3 (134-434); RBC 3.87 M/mm3 (3.60-5.2); RDW 16.6 % (11.6-15.6); WHITE BLOOD COUNT 27.9 K/mm3 (4.0-10.0)
[2020-11-08 09:09] LABS: POTASSIUM 4.1 mmol/L (3.5-5.1)
[2020-11-08 09:11] LABS: ALBUMIN 2.3 g/dl (3.4-5.0); CALCIUM 8.6 mg/dL (8.5-10.1); MAGNESIUM 2.2 mg/dL (1.8-2.4)
[2020-11-08 09:12] LABS: BLOOD UREA NITROGEN 34.5 mg/dL (7-18)
[2020-11-08] MEDS ORDERED: PT OWN MED DRAWER 7, Y5N ONE (09:12)
[2020-11-08 09:16] LABS: BILIRUBIN,TOTAL 0.3 mg/dL (0.2-1); TOT PROT 7.2 g/dl (6.4-8.2)
[2020-11-08] MEDS: methylPREDNISolone NA SUCC 40 MG/1 ML VIAL IVPUSH SCH ×2 (09:32→22:10)
[2020-11-08] MEDS: ASCORBIC ACID 500 MG TABLET (FP) PO SCH (09:33)
[2020-11-08] MEDS: VITAMIN B COMPLEX W/C COMBO TABLET (FP) PO SCH (09:33)
[2020-11-08] MEDS: CHOLECALCIFEROL (VIT D3) 5000 UNITS (125 MCG) CAP PO SCH (09:33)
[2020-11-08] MEDS: MULTIVITAMINS (DAILY MVI) TABLET (FP) PO SCH (09:33)
[2020-11-08] MEDS: OMEGA-3 ACID ETHYL ESTERS (FATTY-ACIDS) 1 GM CAPSULE (FP) PO SCH (09:33)
[2020-11-08] MEDS: ZINC SULFATE 220 MG CAPSULE (FP) PO SCH (09:33)
[2020-11-08] MEDS: APIXABAN 5 MG TABLET PO SCH ×2 (09:34→22:10)
[2020-11-08 11:42] LABS: ANISOCYTOSIS 1+; MACROCYTOSIS 1+
[2020-11-09 08:20] LABS: BASO % 0.4 % (0-2.0); EOS % 0.2 % (0-4.5); HEMATOCRIT 33.2 % (32.4-45.2); HEMOGLOBIN 10.9 GM/dL (10.7-15.3); LYMPH % 8.6 % (8-40); MCH 31.3 pg (25.7-33.7); MCHC 32.8 g/dl (32.0-36.0); MEAN CELL VOLUME 95.4 fl (80-96); MEAN PLT VOLUME 9.1 fl (7.5-11.1); MONO % 2.3 % (3.8-10.2); NEUT % 88.5 % (42.8-82.8); PLATELET COUNT 394 K/MM3 (134-434); RBC 3.47 M/mm3 (3.60-5.2); RDW 16.6 % (11.6-15.6)
[2020-11-09 08:35] LABS: POTASSIUM 5.4 mmol/L (3.5-5.1)
[2020-11-09 08:42] LABS: BLOOD UREA NITROGEN 46.2 mg/dL (7-18)
[2020-11-09 08:43] LABS: CALCIUM 8.5 mg/dL (8.5-10.1); MAGNESIUM 2.4 mg/dL (1.8-2.4)
[2020-11-09 08:47] LABS: BILIRUBIN,TOTAL 0.2 mg/dL (0.2-1); TOT PROT 6.1 g/dl (6.4-8.2)
[2020-11-09] MEDS ORDERED: PT OWN MED DRAWER 7, Y5N ONE ×2 (09:21→14:37)
[2020-11-09] MEDS: MULTIVITAMINS (DAILY MVI) TABLET (FP) PO SCH (10:17)
[2020-11-09] MEDS: OMEGA-3 ACID ETHYL ESTERS (FATTY-ACIDS) 1 GM CAPSULE (FP) PO SCH (10:18)
[2020-11-09] MEDS: methylPREDNISolone NA SUCC 40 MG/1 ML VIAL IVPUSH SCH (10:18)
[2020-11-09] MEDS: APIXABAN 5 MG TABLET PO SCH ×2 (10:18→22:07)
[2020-11-09] MEDS: VITAMIN B COMPLEX W/C COMBO TABLET (FP) PO SCH (10:19)
[2020-11-09 11:30] LABS: ANISOCYTOSIS 0; HELMET CELLS 0; HOWELL-JOLLY BODIES 0; MACROCYTOSIS 0; OVALOCYTE 0; PLATELET ESTIMATE NORMAL; ROULEAU 0; SICKELED CELLS 0; TARGET CELLS 0; TEAR DROP CELLS 0; TOXIC GRANULATION 0
[2020-11-09] MEDS: CHOLECALCIFEROL (VIT D3) 5000 UNITS (125 MCG) CAP PO SCH (18:43)
[2020-11-09] MEDS: ASCORBIC ACID 500 MG TABLET (FP) PO SCH (18:43)
[2020-11-09] MEDS: ZINC SULFATE 220 MG CAPSULE (FP) PO SCH (18:43)
[2020-11-10] MEDS: dilTIAZem HCL 25 MG/5 ML - 5 ML VIAL IVPUSH PRN ×2 (00:08→06:34)
[2020-11-10 07:20] LABS: BASO % 0.3 % (0-2.0); EOS % 0.1 % (0-4.5); HEMATOCRIT 38.1 % (32.4-45.2); HEMOGLOBIN 12.5 GM/dL (10.7-15.3); LYMPH % 17.8 % (8-40); MCH 31.2 pg (25.7-33.7); MCHC 32.8 g/dl (32.0-36.0); MEAN PLT VOLUME 8.8 fl (7.5-11.1); MONO % 5.7 % (3.8-10.2); NEUT % 76.1 % (42.8-82.8); PLATELET COUNT 447 K/MM3 (134-434); RBC 4.01 M/mm3 (3.60-5.2); RDW 17.6 % (11.6-15.6); WHITE BLOOD COUNT 27.4 K/mm3 (4.0-10.0)
[2020-11-10 07:36] LABS: POTASSIUM 4.6 mmol/L (3.5-5.1)
[2020-11-10 07:39] LABS: ALBUMIN 2.3 g/dl (3.4-5.0); BLOOD UREA NITROGEN 44.6 mg/dL (7-18); CALCIUM 8.7 mg/dL (8.5-10.1); MAGNESIUM 2.4 mg/dL (1.8-2.4)
[2020-11-10 07:42] LABS: CREATININE 0.9 mg/dL (0.55-1.3)
[2020-11-10 07:43] LABS: TOT PROT 6.7 g/dl (6.4-8.2)
[2020-11-10 07:48] LABS: BILIRUBIN,TOTAL 0.4 mg/dL (0.2-1)
[2020-11-10] MEDS ORDERED: PT OWN MED DRAWER 7, Y5N ONE ×2 (08:31→09:41)
[2020-11-10] MEDS: APIXABAN 5 MG TABLET PO SCH ×2 (09:45→21:14)
[2020-11-10] MEDS: ZINC SULFATE 220 MG CAPSULE (FP) PO SCH (09:45)
[2020-11-10] MEDS: OMEGA-3 ACID ETHYL ESTERS (FATTY-ACIDS) 1 GM CAPSULE (FP) PO SCH (09:45)
[2020-11-10] MEDS: methylPREDNISolone NA SUCC 40 MG/1 ML VIAL IVPUSH SCH (09:48)
[2020-11-10] MEDS: MULTIVITAMINS (DAILY MVI) TABLET (FP) PO SCH (09:48)
[2020-11-10] MEDS: ASCORBIC ACID 500 MG TABLET (FP) PO SCH (09:49)
[2020-11-10] MEDS: VITAMIN B COMPLEX W/C COMBO TABLET (FP) PO SCH (09:49)
[2020-11-10] MEDS: CHOLECALCIFEROL (VIT D3) 5000 UNITS (125 MCG) CAP PO SCH (09:50)
[2020-11-10 13:06] LABS: ANISOCYTOSIS 0; MACROCYTOSIS 0; PLATELET ESTIMATE NORMAL
[2020-11-11] MEDS ORDERED: PT OWN MED DRAWER 7, Y5N ONE (08:50)
[2020-11-11] MEDS: ZINC SULFATE 220 MG CAPSULE (FP) PO SCH (09:29)
[2020-11-11] MEDS: APIXABAN 5 MG TABLET PO SCH ×2 (09:29→21:22)
[2020-11-11] MEDS: MULTIVITAMINS (DAILY MVI) TABLET (FP) PO SCH (09:29)
[2020-11-11] MEDS: methylPREDNISolone NA SUCC 40 MG/1 ML VIAL IVPUSH SCH (09:29)
[2020-11-11] MEDS: VITAMIN B COMPLEX W/C COMBO TABLET (FP) PO SCH (09:30)
[2020-11-11 11:56] LABS: BASO % 0.3 % (0-2.0); EOS % 0.1 % (0-4.5); HEMATOCRIT 38.5 % (32.4-45.2); HEMOGLOBIN 12.5 GM/dL (10.7-15.3); MCH 31.1 pg (25.7-33.7); MCHC 32.5 g/dl (32.0-36.0); MEAN CELL VOLUME 95.8 fl (80-96); MEAN PLT VOLUME 9.1 fl (7.5-11.1); NEUT % 80.6 % (42.8-82.8); PLATELET COUNT 423 K/MM3 (134-434); RBC 4.02 M/mm3 (3.60-5.2); RDW 17.7 % (11.6-15.6); WHITE BLOOD COUNT 20.5 K/mm3 (4.0-10.0)
[2020-11-11 12:22] LABS: POTASSIUM 4.5 mmol/L (3.5-5.1)
[2020-11-11 12:25] LABS: ALBUMIN 2.5 g/dl (3.4-5.0)
[2020-11-11 12:27] LABS: BLOOD UREA NITROGEN 40.1 mg/dL (7-18); MAGNESIUM 2.3 mg/dL (1.8-2.4)
[2020-11-11 12:30] LABS: CREATININE 0.9 mg/dL (0.55-1.3)
[2020-11-11 12:32] LABS: BILIRUBIN,TOTAL 0.4 mg/dL (0.2-1); TOT PROT 7.1 g/dl (6.4-8.2)
[2020-11-11 14:12] LABS: ANISOCYTOSIS 1+; MACROCYTOSIS 0; PLATELET ESTIMATE NORMAL
[2020-11-12 06:58] LABS: BASO % 0.2 % (0-2.0); EOS % 0.1 % (0-4.5); HEMATOCRIT 39.1 % (32.4-45.2); HEMOGLOBIN 12.4 GM/dL (10.7-15.3); MCH 31.1 pg (25.7-33.7); MCHC 31.8 g/dl (32.0-36.0); MEAN CELL VOLUME 97.7 fl (80-96); MEAN PLT VOLUME 9.1 fl (7.5-11.1); MONO % 5.2 % (3.8-10.2); NEUT % 73.5 % (42.8-82.8); PLATELET COUNT 362 K/MM3 (134-434); RDW 17.7 % (11.6-15.6); WHITE BLOOD COUNT 23.1 K/mm3 (4.0-10.0)
[2020-11-12 08:14] LABS: ALBUMIN 2.4 g/dl (3.4-5.0); CALCIUM 8.6 mg/dL (8.5-10.1)
[2020-11-12 08:15] LABS: BLOOD UREA NITROGEN 39.2 mg/dL (7-18); MAGNESIUM 2.4 mg/dL (1.8-2.4)
[2020-11-12 08:18] LABS: CREATININE 0.9 mg/dL (0.55-1.3)
[2020-11-12 08:19] LABS: BILIRUBIN,TOTAL 0.4 mg/dL (0.2-1); TOT PROT 6.6 g/dl (6.4-8.2)
[2020-11-12] MEDS: MULTIVITAMINS (DAILY MVI) TABLET (FP) PO SCH (09:04)
[2020-11-12] MEDS: ZINC SULFATE 220 MG CAPSULE (FP) PO SCH (09:04)
[2020-11-12] MEDS: VITAMIN B COMPLEX W/C COMBO TABLET (FP) PO SCH (09:04)
[2020-11-12] MEDS: APIXABAN 5 MG TABLET PO SCH ×2 (09:04→21:27)
[2020-11-12 09:31] LABS: ANISOCYTOSIS 2+; MACROCYTOSIS 0; PLATELET ESTIMATE NORMAL
[2020-11-13] MEDS ORDERED: MELATONIN 5 MG TABLETS PO ONE (00:26)
[2020-11-13 07:37] LABS: BASO % 0.1 % (0-2.0); EOS % 0.4 % (0-4.5); HEMATOCRIT 36.3 % (32.4-45.2); LYMPH % 24.4 % (8-40); MCH 31.9 pg (25.7-33.7); MEAN CELL VOLUME 96.5 fl (80-96); MONO % 5.3 % (3.8-10.2); NEUT % 69.8 % (42.8-82.8); PLATELET COUNT 350 K/MM3 (134-434); RBC 3.76 M/mm3 (3.60-5.2); WHITE BLOOD COUNT 13.4 K/mm3 (4.0-10.0)
[2020-11-13 07:47] LABS: POTASSIUM 4.4 mmol/L (3.5-5.1)
[2020-11-13 07:55] LABS: CALCIUM 8.3 mg/dL (8.5-10.1)
[2020-11-13 07:56] LABS: ALBUMIN 2.3 g/dl (3.4-5.0); BLOOD UREA NITROGEN 38.4 mg/dL (7-18); MAGNESIUM 2.3 mg/dL (1.8-2.4)
[2020-11-13 07:59] LABS: CREATININE 0.9 mg/dL (0.55-1.3)
[2020-11-13 08:00] LABS: BILIRUBIN,TOTAL 1.1 mg/dL (0.2-1)
[2020-11-13] MEDS: MULTIVITAMINS (DAILY MVI) TABLET (FP) PO SCH (10:35)
[2020-11-13] MEDS: APIXABAN 5 MG TABLET PO SCH (10:35)
[2020-11-13] MEDS: ZINC SULFATE 220 MG CAPSULE (FP) PO SCH (10:35)
[2020-11-13] MEDS: VITAMIN B COMPLEX W/C COMBO TABLET (FP) PO SCH (10:46)
[2020-11-13 11:57] VITALS: BP 106/57; PULSE 136; TEMP 97.9
[2020-11-13 13:59] LABS: ANISOCYTOSIS 1+; MACROCYTOSIS 1+; OVALOCYTE 1+; PLATELET ESTIMATE NORMAL
== END 2020-11-13 13:50 | disposition home health service (06) | DRG 187 ==
LOC: JER 10:39 → JERBED 13:23 → J4W 10-29 01:36 → UNDODISIN 11-05 16:52
PROVIDERS: ADMIT Internal Medicine; ATTEND Nurse Practitioner Acute Care
PROC: 0W9930Z Drainage of Right Pleural Cavity with Drainage Device, Percutaneous Approach (ICD-10-PCS; principal; 2020-10-28)
PROC: 3E0L3GC Introduction of Other Therapeutic Substance into Pleural Cavity, Percutaneous Approach (ICD-10-PCS; 2020-10-28)
PROC: 3E0L3GC Introduction of Other Therapeutic Substance into Pleural Cavity, Percutaneous Approach (ICD-10-PCS; 2020-10-28)
PROC: 3E0L3GC Introduction of Other Therapeutic Substance into Pleural Cavity, Percutaneous Approach (ICD-10-PCS; 2020-10-28)
PROC: 0W9930Z Drainage of Right Pleural Cavity with Drainage Device, Percutaneous Approach (ICD-10-PCS; 2020-11-03)
DX: J90 Pleural effusion, not elsewhere classified (principal); I48.21 Permanent atrial fibrillation; K51.90 Ulcerative colitis, unspecified, without complications; K76.89 Other specified diseases of liver; I10 Essential (primary) hypertension; E78.5 Hyperlipidemia, unspecified; R82.81 Pyuria; R91.8 Other nonspecific abnormal finding of lung field; D72.829 Elevated white blood cell count, unspecified
CPT/HCPCS: 32557; 36415; 71045-TC-FY; 71046-TC-FY; 71250-TC; 76604-TC; 76705-TC; 80053; 81003; 82042; 82150; 82945; 83615; 83735; 83986; 84100; 84132; 84157; 84478; 85025; 85610; 85651; 86140; 86850; 86900; 86901; 87040; 87070; 87075; 87086; 87102; 87116; 87186; 87205; 87206; 87210; 88108; 88305-TC; 93005; 93010; 94010; 94761; 97116-GP; 97162-GP; 99285-25; C9803; J2997; U0003

== ENCOUNTER 2020-12-28 04:37 | Day surgery (SDC) | payer OTHER, BC ==
[2020-12-25 14:18] VITALS: BMI 21.5
[2020-12-28 14:42] LABS: BF WBC & OTHER NUCLEATED CELLS 322 /mm3
[2020-12-28 14:57] VITALS: BP 116/84; PULSE 82; TEMP 98.6
[2020-12-28 15:44] LABS: BODY FLUID BASOPHIL 2 %; BODY FLUID MACROPHAGES 35 %; BODY FLUID MESOTHELIAL 8 %; BODYL FLD EOSINOPHIL 2 %
[2020-12-30 16:10] LABS: BODY FLUID ALBUMIN 1.5 g/dL (Not Estab.)
== END 2020-12-28 14:15 | disposition home or self-care (01) ==
LOC: JRADIR 04:37
PROVIDERS: ATTEND Internal Medicine Pulmonary Disease
PROC: 0W993ZZ Drainage of Right Pleural Cavity, Percutaneous Approach (ICD-10-PCS; principal; 2020-12-28)
DX: J90 Pleural effusion, not elsewhere classified (principal)
CPT/HCPCS: 32555; 36415; 71046-TC-FY; 76942; 82042; 82150; 82465; 82945; 83986; 84157; 84478; 87070; 87075; 87102; 87116; 87205; 87206; 87210

== ENCOUNTER 2022-01-16 09:14 | Emergency (ER) | payer OTHER, BC ==
[2022-01-16 09:22] VITALS: BMI 22.6
[2022-01-16] MEDS ORDERED: OXYMETAZOLINE 0.05% NASAL SOLUTION 15 ML BOTTLE NS ONE (10:05)
[2022-01-16 15:43] VITALS: BP 138/94; PULSE 88; TEMP 98.4
== END 2022-01-16 15:47 | disposition short-term general hospital (02) ==
LOC: JER 09:14
DX: R04.0 Epistaxis (principal)
CPT/HCPCS: 99283-25

== ENCOUNTER 2023-09-14 11:09 | Observation (INO) | payer OTHER, BC ==
[2023-09-14 12:22] VITALS: BMI 23.3
[2023-09-14 13:49] LABS: BASO % 0.5 % (0-2.0); EOS % 1.5 % (0-4.5); HEMOGLOBIN 14.4 GM/dL (10.7-15.3); LYMPH % 17.4 % (8-40); MCH 32.8 pg (25.7-33.7); MCHC 32.7 g/dl (32.0-36.0); MEAN CELL VOLUME 100.4 fl (80-96); MEAN PLT VOLUME 10.1 fl (7.5-11.1); MONO % 4.4 % (3.8-10.2); NEUT % 76.2 % (42.8-82.8); PLATELET COUNT 203 10^3/uL (134-434); RBC 4.38 M/mm3 (3.60-5.2); RDW 14.5 % (11.6-15.6); WHITE BLOOD COUNT 10.4 K/mm3 (4.0-10.0)
[2023-09-14 13:57] LABS: INR 1.33 (0.83-1.09); PROTHROMBIN TIME (PATIENT) 15.4 SEC (9.7-13.0)
[2023-09-14 13:59] LABS: ACTIVATED PTT 29.3 SECONDS (25.2-36.5)
[2023-09-14 14:27] LABS: POTASSIUM 5.2 mmol/L (3.5-5.1)
[2023-09-14 14:28] LABS: CALCIUM 8.8 mg/dL (8.5-10.1)
[2023-09-14 14:29] LABS: ALBUMIN 3.1 g/dl (3.4-5.0); BLOOD UREA NITROGEN 30.6 mg/dL (7-18); MAGNESIUM 2.2 mg/dL (1.8-2.4)
[2023-09-14 14:33] LABS: CREATININE 1.2 mg/dL (0.55-1.3); TOT PROT 6.6 g/dl (6.4-8.2)
[2023-09-14 14:47] LABS: EPI CELLS 14 /uL (0-25.1); HYALINE CASTS 0 /uL (0-3.1); PH,URINE 6.5 (5.0-8.0); URINE APPEARANCE CLEAR; URINE BACTERIA 23 /uL (0-1359); URINE BILIRUBIN NEGATIVE (NEGATIVE); URINE COLOR YELLOW; URINE GLUCOSE (UA) 3+ (NEGATIVE); URINE KETONE NEGATIVE (NEGATIVE); URINE LEUK ESTERASE NEGATIVE (NEGATIVE); URINE NITRITE NEGATIVE (NEGATIVE); URINE PROTEIN 1+ (NEGATIVE); URINE RBC 27 /uL (0-23.9); URINE WBC 14 /uL (0-25.8)
[2023-09-14] MEDS ORDERED: SODIUM CHLORIDE 0.9% 500 ML INFUS.BAG IV ONE (17:06)
[2023-09-14] MEDS ORDERED: APIXABAN 5 MG TABLET ONE (21:58)
[2023-09-14] MEDS ORDERED: metoPROLOL SUCCINATE 25 MG TAB.SR.24H (FP) PO SCH (22:00)
[2023-09-14] MEDS: APIXABAN 5 MG TABLET PO SCH (22:09)
[2023-09-15 06:55] LABS: BASO % 0.6 % (0-2.0); EOS % 3.6 % (0-4.5); HEMATOCRIT 40.9 % (32.4-45.2); HEMOGLOBIN 13.7 GM/dL (10.7-15.3); MCH 33.5 pg (25.7-33.7); MCHC 33.4 g/dl (32.0-36.0); MEAN CELL VOLUME 100.3 fl (80-96); MEAN PLT VOLUME 9.9 fl (7.5-11.1); MONO % 6.1 % (3.8-10.2); NEUT % 59.7 % (42.8-82.8); PLATELET COUNT 199 10^3/uL (134-434); RBC 4.08 M/mm3 (3.60-5.2); RDW 14.4 % (11.6-15.6); WHITE BLOOD COUNT 9.8 K/mm3 (4.0-10.0)
[2023-09-15 07:10] LABS: POTASSIUM 4.6 mmol/L (3.5-5.1)
[2023-09-15 07:13] LABS: CALCIUM 8.4 mg/dL (8.5-10.1)
[2023-09-15 07:15] LABS: BLOOD UREA NITROGEN 28.4 mg/dL (7-18); MAGNESIUM 1.9 mg/dL (1.8-2.4)
[2023-09-15 07:18] LABS: CREATININE 1.1 mg/dL (0.55-1.3)
[2023-09-15] MEDS ORDERED: MAGNESIUM SULF 50% (8.12 MEQ/2 ML-1 GM VIAL) IVPB ONE (09:30)
[2023-09-15] MEDS ORDERED: metoPROLOL SUCCINATE 25 MG TAB.SR.24H (FP) PO SCH (10:43)
[2023-09-15] MEDS: APIXABAN 5 MG TABLET PO SCH ×2 (11:11→21:48)
[2023-09-15] MEDS: metoPROLOL SUCCINATE 25 MG TAB.SR.24H (FP) PO SCH ×2 (11:30→21:49)
[2023-09-15] MEDS: MESALAMINE 4 GM/60 ML ENEMA RC SCH (13:56)
[2023-09-15] MEDS: SACUBITRIL/VALSARTAN 24 MG-26 MG TABLET PO SCH (21:48)
[2023-09-16 08:44] LABS: POTASSIUM 4.5 mmol/L (3.5-5.1)
[2023-09-16 08:48] LABS: HEMATOCRIT 39.9 % (32.4-45.2); HEMOGLOBIN 13.5 GM/dL (10.7-15.3); MCH 33.9 pg (25.7-33.7); MCHC 33.9 g/dl (32.0-36.0); MEAN CELL VOLUME 99.8 fl (80-96); PLATELET COUNT 211 10^3/uL (134-434); RBC 3.99 M/mm3 (3.60-5.2); RDW 14.1 % (11.6-15.6); WHITE BLOOD COUNT 8.5 K/mm3 (4.0-10.0)
[2023-09-16 08:53] LABS: CALCIUM 8.8 mg/dL (8.5-10.1)
[2023-09-16 08:55] LABS: BLOOD UREA NITROGEN 35.2 mg/dL (7-18)
[2023-09-16] MEDS: metoPROLOL SUCCINATE 25 MG TAB.SR.24H (FP) PO SCH (09:53)
[2023-09-16] MEDS: APIXABAN 5 MG TABLET PO SCH (09:53)
[2023-09-16] MEDS: MESALAMINE 4 GM/60 ML ENEMA RC SCH (09:54)
[2023-09-16 12:32] VITALS: RESP 24; TEMP 98
[2023-09-16] MEDS: SACUBITRIL/VALSARTAN 24 MG-26 MG TABLET PO SCH (13:28)
[2023-09-16 13:48] VITALS: BP 112/65; PULSE 84
== END 2023-09-16 14:15 | disposition home or self-care (01) ==
LOC: JER 11:09 → JERBED 15:22 → J4W 09-15 01:42
PROVIDERS: ADMIT Internal Medicine; ATTEND Internal Medicine
PROC: 3E033GC Introduction of Other Therapeutic Substance into Peripheral Vein, Percutaneous Approach (ICD-10-PCS; principal; 2023-09-14)
PROC: 3E0337Z Introduction of Electrolytic and Water Balance Substance into Peripheral Vein, Percutaneous Approach (ICD-10-PCS; 2023-09-14)
DX: I50.22 Chronic systolic (congestive) heart failure (principal); I48.0 Paroxysmal atrial fibrillation; K51.90 Ulcerative colitis, unspecified, without complications; J98.4 Other disorders of lung; Z79.01 Long term (current) use of anticoagulants
CPT/HCPCS: 0241U-QW; 36415; 71045-TC-FY; 80048; 80053; 81003; 83036; 83735; 83880; 84100; 84443; 84484; 85025; 85027; 85610; 85730; 87086; 93005; 93010; 93306-TC; 96374; 97116-GP; 97161-GP; 99285-25; G0378